=== PATIENT | male | born 1960 | race African-American/Black ===

== ENCOUNTER 2017-07-24 17:02 | Observation (INO) | payer OTHER ==
[2017-07-24] MEDS ORDERED: ONDANSETRON 4 MG/2 ML VIAL IVP STA (18:25)
[2017-07-24] MEDS ORDERED: SODIUM CHLORIDE 0.9% 1,000 ML IV STA ×2 (18:25)
[2017-07-24] MEDS ORDERED: PANTOPRAZOLE 40 MG/10 ML VIAL IVP STA (18:25)
--- NOTE | 2017-07-24 18:40 | ED ---
GI Bleed HPI - General Chief complaint: GI Bleed Stated complaint: BLACK STOOL Time Seen by Provider: 07/24/17 18:04 Source: patient, family, RN notes reviewed, old records reviewed Mode of arrival: wheelchair Limitations: no limitations - History of Present Illness Initial comments: 56-year-old with history of alcoholism presents to the emergency department after 7 days of being sober chief complaint of bloody stools. [facility] due to coffee-ground emesis. His vitals and hemoglobin was stable at that time. He is discharged. He's been having frequent bloody stools since that time. Patient did show me a picture of his stool and emesis and it does appear to be black and coffee ground like. He states he feels weak and fatigued. He is a smoker. Does complain of some shortness of breath with exertion. Denies any fever or chills. Reports a cramping abdominal pain. - Related Data Home Medications Medication Instructions Recorded Confirmed Bismuth Subsalicylate 524 mg PO Q4H PRN 07/24/17 07/24/17 [Pepto-Bismol] D-Methorphan/PE/Acetaminophen 2 cap PO Q6H PRN 07/24/17 07/24/17 [Vicks Dayquil Liquicaps] Gabapentin [Neurontin] 300 mg PO BID 07/24/17 07/24/17 Sertraline [Zoloft] 150 mg PO DAILY 07/24/17 07/24/17 Allergies Allergy/AdvReac Type Severity Reaction Status Date / Time No Known Allergies Allergy Verified 07/24/17 18:27 Review of Systems ROS Statement: Those systems with pertinent positive or pertinent negative responses have been documented in the HPI. ROS Other: All systems not noted in ROS Statement are negative. Past Medical History Past Medical History: No Reported History Additional Past Medical History / Comment(s): chronic neck pain History of Any Multi-Drug Resistant Organisms: None Reported Past Surgical History: Orthopedic Surgery Past Psychological History: Depression Smoking Status: Never smoker Past Alcohol Use History: None Reported Past Drug Use History: None Reported General Exam - General Exam Comments Initial Comments: 56-year-old male. Alert and oriented. No significant distress. Limitations: no limitations General appearance: alert, in no apparent distress Head exam: Present: atraumatic, normocephalic, normal inspection Eye exam: Present: normal appearance, PERRL, EOMI. Absent: scleral icterus, conjunctival injection, periorbital swelling ENT exam: Present: normal exam, mucous membranes moist Neck exam: Present: normal inspection. Absent: tenderness, meningismus, lymphadenopathy Respiratory exam: Present: wheezes. Absent: normal lung sounds bilaterally, respiratory distress, rales, rhonchi, stridor Cardiovascular Exam: Present: regular rate, normal rhythm, normal heart sounds. Absent: systolic murmur, diastolic murmur, rubs, gallop, clicks GI/Abdominal exam: Present: soft, tenderness, normal bowel sounds. Absent: distended, guarding, rebound, rigid Rectal exam: Present: normal rectal tone, heme (+) stool, black stool. Absent: normal inspection Extremities exam: Present: normal inspection, full ROM, normal capillary refill. Absent: tenderness, pedal edema, joint swelling, calf tenderness Back exam: Present: normal inspection Neurological exam: Present: alert, oriented X3, CN II-XII intact Psychiatric exam: Present: normal affect, normal mood Skin exam: Present: warm, dry, intact, normal color. Absent: rash Course Vital Signs 07/24/17 07/24/17 07/24/17 17:26 19:32 19:39 Temperature 97.9 F Pulse Rate 105 H 80 81 Respiratory 18 Rate Blood Pressure 112/68 O2 Sat by Pulse 96 Oximetry 07/24/17 07/24/17 19:46 20:44 Temperature 97.9 F Pulse Rate 83 82 Respiratory 18 16 Rate Blood Pressure 120/75 125/87 O2 Sat by Pulse 96 100 Oximetry - Reevaluation(s) Reevaluation #1: 07/24/17 19:23 Reviewing patient's lab work and testing from [facility]. His hemoglobin of 17.8 on 521. His fecal occult at that time was negative. Blood type A positive. He had a computed tomography scan of his chest. There is no evidence of PE. There is aneurysmal dilation of the ascending thoracic aorta with 3.6 cm. Expanded lung gonzalez. Accentuation of the interstitial markings of both lung gonzalez with findings of a reticular nodular pattern suggesting possible interstitial edema or decompensation. No pneumothorax. No axillary or mediastinal adenopathy. Reevaluation #2: 07/24/17 20:42 is reevaluated discussed and wheezing. Pulse ox 90% on room air. Placed on oxygen. Patient informed of lab results. Concern for COPD exacerbation with normal chest x-ray and his symptoms and coughing. We'll start the Patient on Solu-Medrol. Also treating the Patient for GI bleed. His hemoglobin is stable however he did have melanotic stool. Medical Decision Making - Medical Decision Making 56-year-old male presents emergency room today chief complaint of bloody stools. He shows me a picture with melanotic stools. Evidence of melena during rectal exam, planes of cramping abdominal pain. Patient also is having some wheezing and shortness of breath. DuoNeb treatment completed. Has a nonproductive cough. Chest x-ray was reviewed and normal. Other lab work was reviewed and unremarkable. His hemoglobin was stable from his previous ER stay and [facility]. However with the significant amount of melanotic stool concerned and would like to recheck the labs in the morning. Also treat the Patient for COPD exacerbation with steroids and continue breathing treatments. Consults to GI and pulmonology. With his history of alcoholic gastritis we'll put the Patient on CIWA protocol as well. Discussed the case with Julio Brannon NP. She will admit for [facility]. - Lab Data Result diagrams: 07/24/17 18:58 07/24/17 18:58 Lab Results 07/24/17 07/24/17 07/24/17 Range/Units 18:58 18:58 18:58 WBC 10.4 (3.8-10.6) k/uL RBC 4.50 (4.30-5.90) m/uL Hgb 15.1 (13.0-17.5) gm/dL Hct 41.9 (39.0-53.0) % MCV 93.3 (80.0-100.0) fL MCH 33.6 (25.0-35.0) pg MCHC 36.0 (31.0-37.0) g/dL RDW 12.1 (11.5-15.5) % Plt Count 441 (150-450) k/uL Neutrophils % 70 % Lymphocytes % 16 % Monocytes % 10 % Eosinophils % 2 % Basophils % 0 % Neutrophils # 7.3 (1.3-7.7) k/uL Lymphocytes # 1.6 (1.0-4.8) k/uL Monocytes # 1.0 (0-1.0) k/uL Eosinophils # 0.2 (0-0.7) k/uL Basophils # 0.0 (0-0.2) k/uL PT (9.0-12.0) sec INR (<1.2) APTT (22.0-30.0) sec Sodium 136 L (137-145) mmol/L Potassium 3.7 (3.5-5.1) mmol/L Chloride 91 L (98-107) mmol/L Carbon Dioxide 32 H (22-30) mmol/L Anion Gap 13 mmol/L BUN 14 (9-20) mg/dL Creatinine 0.70 (0.66-1.25) mg/dL Est GFR (CKD-EPI)AfAm >90 (>60 ml/min/1.73 sqM) Est GFR (CKD-EPI)NonAf >90 (>60 ml/min/1.73 sqM) Glucose 86 (74-99) mg/dL Calcium 9.7 (8.4-10.2) mg/dL Magnesium 1.8 (1.6-2.3) mg/dL Total Bilirubin 0.3 (0.2-1.3) mg/dL AST 49 (17-59) U/L ALT 38 (21-72) U/L Alkaline Phosphatase 65 (38-126) U/L Total Creatine Kinase 205 H (55-170) U/L CK-MB (CK-2) 1.0 (0.0-2.4) ng/mL CK-MB (CK-2) Rel Index 0.5 Troponin I <0.012 (0.000-0.034) ng/mL Total Protein 6.6 (6.3-8.2) g/dL Albumin 3.7 (3.5-5.0) g/dL Lipase 143 (23-300) U/L Stool Occult Blood (Negative) Blood Type Blood Type Recheck Antibody Screen Spec Expiration Date 07/24/17 07/24/17 07/24/17 Range/Units 18:58 18:58 18:58 WBC (3.8-10.6) k/uL RBC (4.30-5.90) m/uL Hgb (13.0-17.5) gm/dL Hct (39.0-53.0) % MCV (80.0-100.0) fL MCH (25.0-35.0) pg MCHC (31.0-37.0) g/dL RDW (11.5-15.5) % Plt Count (150-450) k/uL Neutrophils % % Lymphocytes % % Monocytes % % Eosinophils % % Basophils % % Neutrophils # (1.3-7.7) k/uL Lymphocytes # (1.0-4.8) k/uL Monocytes # (0-1.0) k/uL Eosinophils # (0-0.7) k/uL Basophils # (0-0.2) k/uL PT 11.0 (9.0-12.0) sec INR 1.1 (<1.2) APTT 24.5 (22.0-30.0) sec Sodium (137-145) mmol/L Potassium (3.5-5.1) mmol/L Chloride (98-107) mmol/L Carbon Dioxide (22-30) mmol/L Anion Gap mmol/L BUN (9-20) mg/dL Creatinine (0.66-1.25) mg/dL Est GFR (CKD-EPI)AfAm (>60 ml/min/1.73 sqM) Est GFR (CKD-EPI)NonAf (>60 ml/min/1.73 sqM) Glucose (74-99) mg/dL Calcium (8.4-10.2) mg/dL Magnesium (1.6-2.3) mg/dL Total Bilirubin (0.2-1.3) mg/dL AST (17-59) U/L ALT (21-72) U/L Alkaline Phosphatase (38-126) U/L Total Creatine Kinase (55-170) U/L CK-MB (CK-2) (0.0-2.4) ng/mL CK-MB (CK-2) Rel Index Troponin I (0.000-0.034) ng/mL Total Protein (6.3-8.2) g/dL Albumin (3.5-5.0) g/dL Lipase (23-300) U/L Stool Occult Blood Positive (Negative) Blood Type A Positive Blood Type Recheck CABO Indicated Antibody Screen NEGATIVE Spec Expiration Date 07/27/20172017 - Radiology Data Radiology results: report reviewed EKG performed at 1942 shows normal sinus rhythm, incomplete right branch block. Portable an EKG. Ventricular rate of 76 bpm. Pulse 134. QRS ration 12/08/2001. QTc is 414/465. Disposition Clinical Impression: Melena, Alcoholic gastritis, COPD exacerbation Disposition: ADMITTED IP TO THIS HOSP Condition: Stable Is patient prescribed a controlled substance at d/c from ED?: No When asked, does pt state using other controlled substances?: No If prescribed controlled substance>3 days was MAPS reviewed?: No If opioid is for acute pain is fill amount 7 days or less?: No If Rx opioid, was Start Talking consent form obtained?: No Referrals: None,Stated [Primary Care Provider] - 1-2 days Time of Disposition: 20:49
[2017-07-24] MEDS ORDERED: IPRATROPIUM-ALBUTEROL 3 ML NEB INHALATION STA (18:56)
[2017-07-24 19:17] LABS: Basophils % (A) 0 %; Eosinophils # (A) 0.2 k/uL (0-0.7); Eosinophils % (A) 2 %; HCT 41.9 % (39.0-53.0); HGB 15.1 gm/dL (13.0-17.5); Lymphocytes # (A) 1.6 k/uL (1.0-4.8); Lymphocytes % (A) 16 %; MCH 33.6 pg (25.0-35.0); MCV 93.3 fL (80.0-100.0); Mean Platelet Volume 6.9; Monocytes % (A) 10 %; Neutrophils # (A) 7.3 k/uL (1.3-7.7); Neutrophils % (A) 70 %; Platelet Count 441 k/uL (150-450); RDW 12.1 % (11.5-15.5); WBC 10.4 k/uL (3.8-10.6)
--- NOTE | 2017-07-24 19:38 | XR ---
EXAMINATION TYPE: XR chest 2V DATE OF EXAM: 07/24/2017 COMPARISON: NONE HISTORY: Short of breath TECHNIQUE: Frontal and lateral views of the chest are obtained. FINDINGS: Heart and mediastinum are normal. Lungs are clear. Diaphragm is normal. Bony thorax is int act. There are chest leads. IMPRESSION: Normal chest
--- NOTE | 2017-07-24 19:39 | XR ---
EXAMINATION TYPE: XR KUB DATE OF EXAM: 07/24/2017 COMPARISON: NONE HISTORY: Abdominal pain and weakness TECHNIQUE: 2 views FINDINGS: 2 upright views were obtained and show normal bowel gas pattern. There is no sign of intest inal obstruction or pneumoperitoneum. Fecal pattern is normal. Lung bases are clear. There are no pat hologic calcifications. IMPRESSION: Nonacute abdomen.
[2017-07-24 19:41] LABS: INR 1.1 (<1.2); Partial Thromboplastin Time 24.5 sec (22.0-30.0)
[2017-07-24 19:49] LABS: Creatine Kinase 205 U/L (55-170)
[2017-07-24 19:53] LABS: ALT 38 U/L (21-72); AST 49 U/L (17-59); Albumin 3.7 g/dL (3.5-5.0); Alkaline Phosphatase 65 U/L (38-126); Anion Gap 13 mmol/L; Blood Urea Nitrogen 14 mg/dL (9-20); Calcium 9.7 mg/dL (8.4-10.2); Carbon Dioxide 32 mmol/L (22-30); Chloride 91 mmol/L (98-107); Glucose 86 mg/dL (74-99); Lipase 143 U/L (23-300); Magnesium 1.8 mg/dL (1.6-2.3); Potassium 3.7 mmol/L (3.5-5.1); Sodium 136 mmol/L (137-145); Total Bilirubin 0.3 mg/dL (0.2-1.3); Total Protein 6.6 g/dL (6.3-8.2)
[2017-07-24 20:01] LABS: Troponin I <0.012 ng/mL (0.000-0.034)
[2017-07-24] MEDS ORDERED: methylPREDNISolone SOD SUCCI 125 MG/2 ML VIAL IV STA (20:28)
[2017-07-24] MEDS ORDERED: IPRATROPIUM-ALBUTEROL 3 ML NEB INHALATION PRN (20:29)
[2017-07-24] MEDS ORDERED: MORPHINE SULFATE 4 MG/ML SYRINGE IVP STA (20:37)
[2017-07-24] MEDS ORDERED: LORazepam 2 MG/ML INJ IV PRN ×3 (20:46)
[2017-07-24] MEDS ORDERED: THIAMINE 100 MG/ML 2 ML VIAL IM STA (20:46)
[2017-07-24] MEDS: guaiFENesin 600 MG TABLET.ER PO SCH (22:37)
[2017-07-24] MEDS: GABAPENTIN 300 MG CAP PO SCH (22:37)
[2017-07-24] MEDS: methylPREDNISolone SOD SUCCI 125 MG/2 ML VIAL IV SCH (23:45)
[2017-07-25 06:03] VITALS: RESP 16
[2017-07-25] MEDS: methylPREDNISolone SOD SUCCI 125 MG/2 ML VIAL IV SCH ×4 (06:37→23:37)
[2017-07-25] MEDS: SERTRALINE 50 MG TAB PO SCH (10:07)
[2017-07-25] MEDS: GABAPENTIN 300 MG CAP PO SCH ×2 (10:08→21:27)
[2017-07-25] MEDS: guaiFENesin 600 MG TABLET.ER PO SCH ×2 (10:08→21:27)
--- NOTE | 2017-07-25 11:17 | P.CNPUL ---
History of Present Illness Consult date: 07/25/17 Requesting physician: Floresita Hunt Reason for consult: dyspnea Chief complaint: Shortness of breath, nausea and vomiting. History of present illness: This is a very pleasant 56-year-old gentleman who has no primary care physician. He does follow with the [place] [facility] for history of depression he is currently on Zoloft and gabapentin. He does have a history of alcohol abuse. He does have a 35+ year pack per day smoking history. He has not been seen by a enamel burner in the past he has had exertional dyspnea for quite some time now. No oxygen or inhalers in the outpatient setting. He presented here to the emergency room yesterday after a week of continuous nausea and vomiting. He was seen in the emergency room 2 times at [facility] and both times discharged home. The first time with no treatment plan and the second time he was given antibiotics. After that he was noticing some black tarry stool and presented here to the emergency room yesterday for the same. He denied any hematocrit emesis. No bright red blood in the stool. He does have abdominal pain and cramping. He was also having increasing shortness of breath. We are consulted for the same. He is seen today in the regular medical floor. He is currently awake and alert in no acute distress. He denies any further rectal bleeding. His stool for occult blood was positive. Hemoglobin 15.1. He's been afebrile. Hemodynamically stable. Maintaining good O2 saturations in the 90s on 2 L/m per nasal cannula. He has been initiated on bronchodilators and IV Solu-Medrol. A computed tomography scan at [facility] revealed no evidence of PE. There is aneurysmal dilatation of the ascending thoracic aorta measuring 3.6 cm. Expanded lung gonzalez. Accentuation of the interstitial markings in both lung gonzalez with findings of reticular nodular pattern suggestion possible interstitial edema and decompensation. No pneumothorax. No axillary mediastinal adenopathy. Review of Systems Constitutional: Reports malaise, Reports poor appetite Eyes: denies blurred vision, denies decreased vision Ears: deny: decreased hearing Ears, nose, mouth and throat: Denies headache, Denies sore throat Cardiovascular: Denies chest pain, Denies shortness of breath Respiratory: Reports congestion, Reports cough, Reports dyspnea, Reports wheezing Gastrointestinal: Reports abdominal pain, Reports change in bowel habits, Reports melena Genitourinary: Reports as per HPI Musculoskeletal: Denies myalgias Integumentary: Denies pruritus, Denies rash Neurological: Denies numbness, Denies weakness Psychiatric: Denies anxiety, Denies depression Endocrine: Denies fatigue, Denies weight change Hematologic/Lymphatic: Reports as per HPI Allergic/Immunologic: Reports as per HPI Past Medical History Past Medical History: No Reported History Additional Past Medical History / Comment(s): chronic neck pain History of Any Multi-Drug Resistant Organisms: None Reported Past Surgical History: Orthopedic Surgery Past Anesthesia/Blood Transfusion Reactions: No Reported Reaction Past Psychological History: Depression Smoking Status: Never smoker Past Alcohol Use History: None Reported Past Drug Use History: None Reported - Past Family History Mother Family Medical History: Cancer Medications and Allergies Home Medications Medication Instructions Recorded Confirmed Type Bismuth Subsalicylate 524 mg PO Q4H PRN 07/24/17 07/24/17 History [Pepto-Bismol] D-Methorphan/PE/Acetaminophen 2 cap PO Q6H PRN 07/24/17 07/24/17 History [Vicks Dayquil Liquicaps] Gabapentin [Neurontin] 300 mg PO BID 07/24/17 07/24/17 History Sertraline [Zoloft] 150 mg PO DAILY 07/24/17 07/24/17 History Allergies Allergy/AdvReac Type Severity Reaction Status Date / Time No Known Allergies Allergy Verified 07/24/17 18:27 Physical Exam Vitals: Vital Signs Temp Pulse Pulse Resp BP BP Pulse Ox 07/25/17 06:02 97.1 F L 71 16 108/66 93 L 07/24/17 23:00 97.5 F L 76 14 108/68 99 07/24/17 20:44 97.9 F 82 16 125/87 100 07/24/17 19:46 83 18 120/75 96 07/24/17 19:39 81 07/24/17 19:32 80 07/24/17 17:26 97.9 F 105 H 18 112/68 96 Intake and Output 07/24/17 07/25/17 07/25/17 22:59 06:59 14:59 Output Total 450 Balance -450 Output: Urine 450 Other: # Voids 0 Weight 68.039 kg - Constitutional General appearance: thin - EENT Eyes: EOMI, PERRLA Ears: bilateral: normal - Neck Neck: normal ROM Carotids: bilateral: upstroke normal Thyroid: bilateral: normal size - Respiratory Respiratory: bilateral: CTA - Cardiovascular Rhythm: regular Heart sounds: normal: S1, S2 - Gastrointestinal General gastrointestinal: normal bowel sounds Localized gastrointestinal: tender: diffuse - Integumentary Integumentary: normal turgor - Neurologic Neurologic: CNII-XII intact - Musculoskeletal Musculoskeletal: generalized weakness - Psychiatric Psychiatric: A&O x's 3, appropriate affect, intact judgment & insight Results - Laboratory Findings CBC and BMP: 07/24/17 18:58 07/24/17 18:58 PT/INR, D-dimer PT 11.0 sec (9.0-12.0) 07/24/17 18:58 INR 1.1 (<1.2) 07/24/17 18:58 Abnormal lab findings: Abnormal Labs 07/24/17 07/24/17 18:58 18:58 Sodium 136 L Chloride 91 L Carbon Dioxide 32 H Total Creatine Kinase 205 H - Diagnostic Findings Chest x-ray: image reviewed Assessment and Plan Assessment: Impression: #1 Acute GI bleed of unknown source. #2 History of daily alcohol use. #3 Acute hypoxic respiratory failure secondary to suspected significant chronic obstructive pulmonary disease exacerbation #4 History of heavy tobacco dependence of greater than 40 years at 12 1-1/2 packs per day. #5 History of depression. Plan: The patient was seen and evaluated by Dr. Phillips. The patient has been initiated on IV Solu-Medrol and bronchodilators. We will make them every 4 hours and when necessary. Add Symbicort twice a day. He most likely does have extensive COPD which will be worked up in the outpatient setting. Will need to be worked up by gastroenterology regarding his GI bleed. Suspect upper GI bleed secondary to alcohol use. We will continue to follow and make further recommendations based on his clinical status. I, the cosigning physician, performed a history & physical examination of the patient. Lungs sounds bilateral end expiratory wheeze. Diminished. Maintaining good O2 saturations in the 90s on 2 L/m per nasal cannula. I discussed the assessment and plan of care with my nurse practitioner, Radha Lee. I attest to the above consultation as dictated by her. Time with Patient: Greater than 30
[2017-07-25] MEDS: THIAMINE 100 MG TAB PO SCH ×2 (13:29→17:45)
--- NOTE | 2017-07-25 18:31 | P.CONS ---
History of Present Illness - Reason for Consult Consult date: 07/25/17 GI bleeding - History of Present Illness The patient is a 56-year-old male who presented to the emergency room with the complaint of dark and bloody stools. He has also been complaining of cough and shortness of breath. The patient has history of alcohol dependency and drinks excessively on a regular basis but apparently has stopped drinking around a month ago. He was in the emergency room at [facility] earlier this week for dark and bloody stools and his hemoglobin was 17.8 and was discharged. At that time he reported. Coffee-ground emesis as well. The patient does tolerating regular diet in the hospital. His hemoglobin has been around 15. He denied dysphagia, odynophagia. Reported abdominal cramps that seems to be improving. No fever, chills or jaundice. Review of Systems Constitutional: Denies fever, chills, sweats, weight gain, or loss. Increased fatigue weakness. HEENT: No headaches, blurred vision or loss, earaches, drainage, tinnitus, oral mucosal lesions, dysphagia, or odynophagia. CARDIAC: Negative for chest pain, arrhythmias, or palpitation. RESPIRATORY: Reports shortness of breath and cough, no hemoptysis, or significant sputum production. GI: See HPI for pertinent findings. : Negative for hematuria, urgency, frequency, polyuria, or dysuria. MUSCULOSKELETAL: Negative for muscle aches, swelling, arthritis, and arthralgias. NEUROLOGIC: Negative for stroke or TIA. ENDOCRINE: Negative for thyroid problems. SKIN: Negative for rash or itching. PSYCHIATRIC: Negative history for depression and anxiety Past Medical History Past Medical History: No Reported History Additional Past Medical History / Comment(s): chronic neck pain History of Any Multi-Drug Resistant Organisms: None Reported Past Surgical History: Orthopedic Surgery Past Anesthesia/Blood Transfusion Reactions: No Reported Reaction Past Psychological History: Depression Smoking Status: Never smoker Past Alcohol Use History: None Reported Past Drug Use History: None Reported - Past Family History Mother Family Medical History: Cancer Medications and Allergies Home Medications Medication Instructions Recorded Confirmed Type Bismuth Subsalicylate 524 mg PO Q4H PRN 07/24/17 07/24/17 History [Pepto-Bismol] D-Methorphan/PE/Acetaminophen 2 cap PO Q6H PRN 07/24/17 07/24/17 History [Vicks Dayquil Liquicaps] Gabapentin [Neurontin] 300 mg PO BID 07/24/17 07/24/17 History Sertraline [Zoloft] 150 mg PO DAILY 07/24/17 07/24/17 History Allergies Allergy/AdvReac Type Severity Reaction Status Date / Time No Known Allergies Allergy Verified 07/24/17 18:27 Physical Exam Vitals: Vital Signs Temp Pulse Pulse Resp BP BP Pulse Ox 07/25/17 06:02 97.1 F L 71 16 108/66 93 L 07/24/17 23:00 97.5 F L 76 14 108/68 99 07/24/17 20:44 97.9 F 82 16 125/87 100 07/24/17 19:46 83 18 120/75 96 07/24/17 19:39 81 07/24/17 19:32 80 07/24/17 17:26 97.9 F 105 H 18 112/68 96 Intake and Output 07/25/17 07/25/17 07/25/17 06:59 14:59 22:59 Intake Total 0 Output Total 450 Balance -450 0 Intake: Intake, IV Titration 0 Amount Sodium Chloride 0.9% 1, 0 000 ml @ 100 mls/hr IV . Q10H STA Rx#:[id number] Output: Urine 450 General appearance: The patient is alert, oriented, in no acute distress. HET: Head is normocephalic and atraumatic. Pupils are equal and reactive. Oropharynx is clear without lesions. Neck: Supple without lymphadenopathy. Trachea midline. Heart: S1 S2. Regular rate and rhythm. Lungs: No crackles or wheezes are heard. Abdomen: Soft, nontender, nondistended with bowel sounds. No peritoneal signs. No palpable organomegaly or masses. Extremities: Normal skin color and turgor. No cyanosis, rash, ulceration, clubbing, or edema. Radial and pedal pulses are 2/4 bilaterally. Neurological: No focal deficits. Strength and sensation are grossly intact. Results CBC & Chem 7: 07/24/17 18:58 07/24/17 18:58 Labs: Abnormal Lab Results - Last 24 Hours (Table) 07/24/17 07/24/17 Range/Units 18:58 18:58 Sodium 136 L (137-145) mmol/L Chloride 91 L (98-107) mmol/L Carbon Dioxide 32 H (22-30) mmol/L Total Creatine Kinase 205 H (55-170) U/L Assessment and Plan Assessment: GI bleeding could be on the basis of alcoholic gastritis. The mucosal tears secondary to intractable nausea and vomiting, which he apparently experienced early in this illness, should be kept in mind. The patient is being managed currently for exacerbation of COPD. Plan: Agree with your current management. We will add H2 kimberly treatment empirically and further plans including consideration for upper endoscopy will be made based on his course. His last colonoscopy was 6 or 7 years ago. I will follow with you with interest.
--- NOTE | 2017-07-25 21:55 | HP ---
HISTORY AND PHYSICAL DATE OF SERVICE: 07/25/2017 CHIEF COMPLAINTS: GI bleed and black stools and shortness of breath. HISTORY OF PRESENT ILLNESS: This 56-year-old gentleman with a past medical history of multiple medical problems, including history of DJD, history of depression not being followed by the [facility] in the outpatient setting., presented with multiple complaints, including GI bleed, black stools and shortness of breath to [facility]. The patient has significant history of EtOH. Patient is apparently sober for the last 7 days. Last drink was last Thursday. The patient was evaluated at [facility] and was discharged. The patient was started on bronchodilators and steroids. The patient made significant improvement. The patient is being closely monitored at this time. The hemoglobin is found to be 15.1. Sodium is 136. There is no history of any fever, rigors, chills at this time. PAST MEDICAL HISTORY: History of DJD, history of chronic neck pain. MEDICATIONS: 1. Pepto-Bismol 525 mg q.4h p.r.n. 2. Dextromethorphan 2 capsules every 6 hours p.r.n. 3. Zoloft 150 mg p.o. daily. 4. Neurontin 300 mg p.o. b.i.d. ALLERGIES: None. FAMILY HISTORY: History of cancers in the family. SOCIAL HISTORY: History of alcohol. No history of smoking. REVIEW OF SYSTEMS: ENT: No diminished hearing, diminished vision. CARDIOVASCULAR: As mentioned earlier. RESPIRATORY: As mentioned earlier. GI: As mentioned earlier. : No dysuria. NERVOUS: No numbness or weakness. ALLERGY/IMMUNOLOGY: No asthma or hay fever. MUSCULOSKELETAL: As mentioned earlier. HEMATOLOGY/ONCOLOGY: As mentioned earlier. ENDOCRINE: No history of diabetes, hypothyroidism. CONSTITUTIONAL: As mentioned earlier. DERMATOLOGY: Negative. RHEUMATOLOGY: Negative. PSYCHIATRY: As mentioned earlier. PHYSICAL EXAM: The patient alert, oriented x3. Pulse 62, blood pressure 113/70, respirations 16, temperature 98.2, pulse ox 96% on room air. HEENT: Conjunctivae normal. Oral mucosa moist. NECK: No jugular venous distention. No carotid bruits. No lymph node enlargement. CARDIOVASCULAR: S1, S2 muffled. RESPIRATORY: Breath sounds diminished in the bases. Bilateral scattered rhonchi and crackles. ABDOMEN: Soft, nontender. No mass palpable. LEGS: No edema. No swelling. NERVOUS SYSTEM: Diffusely weak. Cranial nerve grossly intact. LYMPHATIC: No lymphadenopathy in neck, axillae or groin. SKIN: No ulcer, rash or bleeding. ASSESSMENT: 1. Chronic obstructive pulmonary disease acute exacerbation with acute purulent tracheobronchitis. 2. Possible gastrointestinal bleed. 3. History of EtOH. 4. History of degenerative joint disease, chronic neck pain. 5. History of depression. 6. Hyponatremia. 7. Aneurysmal dilatation of the ascending aorta from elsewhere CT scan. RECOMMENDATIONS AND DISCUSSION: In this 56-year-old gentleman who presented with multiple complex medical issues, will monitor the patient closely, continue the current medical management and symmetric pneumothorax. Will initiate intensive bronchodilator treatment. Otherwise, I would also recommend proton pump inhibitors and consult with VENKATA Payan protocol. Otherwise, avoid NSAIDs at this time. Repeat labs will be ordered. Discussed with Gastroenterology. Recommend possibly outpatient workup at this time, as the patient is stable. Otherwise, I also did discuss with multiple family members and we will also [facility] Also, according to the daughter, the patient might have [facility] insurance. Prognosis guarded. Further recommendations to follow. MMODL / IJN: [id number] /
[2017-07-26 06:04] VITALS: BP 113/73; PULSE 78; TEMP 97
[2017-07-26] MEDS: methylPREDNISolone SOD SUCCI 125 MG/2 ML VIAL IV SCH ×2 (06:33→11:07)
[2017-07-26] MEDS: SERTRALINE 50 MG TAB PO SCH (07:42)
[2017-07-26] MEDS: GABAPENTIN 300 MG CAP PO SCH (07:42)
[2017-07-26] MEDS: guaiFENesin 600 MG TABLET.ER PO SCH (07:42)
[2017-07-26 08:11] LABS: Basophils % (A) 0 %; Eosinophils % (A) 0 %; HCT 35.7 % (39.0-53.0); HGB 12.2 gm/dL (13.0-17.5); Lymphocytes # (A) 0.8 k/uL (1.0-4.8); Lymphocytes % (A) 8 %; MCH 33.3 pg (25.0-35.0); MCHC 34.1 g/dL (31.0-37.0); MCV 97.8 fL (80.0-100.0); Mean Platelet Volume 6.8; Monocytes # (A) 0.5 k/uL (0-1.0); Monocytes % (A) 5 %; Neutrophils # (A) 8.7 k/uL (1.3-7.7); Neutrophils % (A) 84 %; Platelet Count 403 k/uL (150-450); RBC 3.65 m/uL (4.30-5.90); RDW 12.8 % (11.5-15.5); WBC 10.4 k/uL (3.8-10.6)
[2017-07-26 08:32] LABS: Anion Gap 12 mmol/L; Blood Urea Nitrogen 12 mg/dL (9-20); Calcium 9.3 mg/dL (8.4-10.2); Carbon Dioxide 26 mmol/L (22-30); Chloride 104 mmol/L (98-107); Glucose 101 mg/dL (74-99); Potassium 4.2 mmol/L (3.5-5.1); Sodium 142 mmol/L (137-145)
--- NOTE | 2017-07-26 09:36 | P.PN ---
Subjective Progress Note Date: 07/26/17 Principal diagnosis: Shortness of breath Progress note dated 07/26/2017 56-year-old white male who has no primary care physician. He apparently follows with the [facility] in [place]. The patient apparently takes Zoloft and gabapentin. Does have a history of alcohol abuse and significant tobacco abuse. Came in with complaints of primarily GI issues. We will assess see him because of the COPD. He likely does have COPD. We will place him on appropriate medications and I'm happy to report that he does feel much better. He was recently at [facility] twice for difficulty breathing and also GI issues. He was never admitted there. Again feeling much better today. We did cruise counselor him about the importance of smoking cessation. Objective - Vital Signs Vital signs: Vital Signs Temp 97.0 F L 07/26/17 06:03 Pulse 78 07/26/17 06:03 Resp 16 07/26/17 06:03 BP 113/73 07/26/17 06:03 Pulse Ox 99 07/26/17 06:03 Intake & Output 07/25/17 07/26/17 07/26/17 18:59 06:59 18:59 Intake Total 0 Balance 0 Intake: Intake, IV Titration 0 Amount Sodium Chloride 0.9% 1, 0 000 ml @ 100 mls/hr IV . Q10H STA Rx#:[id number] Other: # Voids 1 - Exam No acute distress, oriented 3. HEENT examination is grossly unremarkable. Mucous membranes are moist. No oral lesions. Neck supple. Full range of motion. No adenopathy thyromegaly or neck vein distention. Cardiovascular examination reveals regular rhythm rate. S1-S2 normal. No S3 or S4. No discernible murmur noted. Lungs reveal few scattered rhonchi. Breath sounds equal bilaterally. Mild expiratory wheezes. Breath sounds equal bilaterally. Slight prolongation. Breath sounds better today than yesterday. Abdomen soft bowel sounds are heard. No masses or tenderness. Extremities are intact. No cyanosis clubbing or edema. Skin is without rash or lesion. Neurologic examination is brief but nonfocal. - Labs CBC & Chem 7: 07/26/17 07:11 07/26/17 07:11 Labs: Abnormal Lab Results - Last 24 Hours (Table) 07/26/17 07/26/17 Range/Units 07:11 07:11 RBC 3.65 L (4.30-5.90) m/uL Hgb 12.2 L (13.0-17.5) gm/dL Hct 35.7 L (39.0-53.0) % Neutrophils # 8.7 H (1.3-7.7) k/uL Lymphocytes # 0.8 L (1.0-4.8) k/uL Creatinine 0.58 L (0.66-1.25) mg/dL Glucose 101 H (74-99) mg/dL Assessment and Plan Assessment: Assessment Acute GI bleed History of daily alcohol use, rule out alcoholic gastritis Acute hypoxemic respiratory failure secondary to suspected COPD History of heavy tobacco use History of depression Plan: Plan dated 07/26/2017. The patient was started on IV Solu-Medrol and bronchodilators. The patient is doing much better. We'll continue to follow. We have counseled him about the importance of smoking cessation. Gastroenterology to see the patient for his GI issues. He'll need follow-up in our office post discharge. Time with Patient: Less than 30
[2017-07-26] MEDS: THIAMINE 100 MG TAB PO SCH (11:07)
[2017-07-26] MEDS ORDERED: SYMBICORT 160-4.5 MCG INHALER INHALATION SCH (20:00)
--- NOTE | 2017-07-27 05:56 | DS ---
DISCHARGE SUMMARY DATE OF SERVICE: 07/26/2017 FINAL DIAGNOSES: 1. Chronic obstructive pulmonary disease acute exacerbation with acute purulent tracheobronchitis. 2. Possible gastrointestinal bleed. 3. History of EtOH. 4. History of degenerative joint disease. 5. History of Chronic back pain. 6. History of depression. 7. Hyponatremia. 8. Dilatation of the ascending aorta from CT scan elsewhere. DISCHARGE DISPOSITION: The patient is being discharged in stable condition with guarded prognosis. HISTORY OF PRESENT ILLNESS: This 56-year-old gentleman with a past medical history of multiple medical problems as mentioned earlier, was admitted with COPD exacerbation, suspicion of GI bleed. The patient was treated with bronchodilators, improved significantly. Patient is currently stable and improved significantly. Hemoglobin 7.2. Dr. Phillips saw the patient. Recommend the patient to be discharged. DISCHARGE ADVICE AND MEDICATIONS: 1. Diet is cardiac diet. 2. Activity limited until followup. 3. Follow up with the [facility], Dr. Page in 2-3 days. 4. CBC, BMP. 5. Follow up with Dr. Phillips as advised. MEDICATIONS: 1. subsalicylate p.r.n. 2. Symbicort 1 puff b.i.d. 3. Neurontin 300 mg p.o. b.i.d. 4. Albuterol and Atrovent updrafts q.i.d. and p.r.n. 5. Zoloft 100 mg 150 daily. 6. Vitamin B1 100 mg p.o. daily. 7. Levaquin 500 mg daily. 8. Steroid taper prednisone. MMODL / IJN: [id number] / CAROL
== END 2017-07-26 16:43 | disposition home or self-care (01) ==
LOC: EC 17:02 → 4MS4W 21:01
PROVIDERS: ADMIT Hospitalist; ATTEND Hospitalist
DX: J44.1 Chronic obstructive pulmonary disease with (acute) exacerbation (principal); J44.0 Chronic obstructive pulmonary disease with (acute) lower respiratory infection; J20.9 Acute bronchitis, unspecified; J96.01 Acute respiratory failure with hypoxia; K92.1 Melena; M19.90 Unspecified osteoarthritis, unspecified site; F10.20 Alcohol dependence, uncomplicated; E87.1 Hypo-osmolality and hyponatremia; F17.210 Nicotine dependence, cigarettes, uncomplicated; G89.29 Other chronic pain; M54.2 Cervicalgia; M54.9 Dorsalgia, unspecified; F32.9 Major depressive disorder, single episode, unspecified; I71.2 Thoracic aortic aneurysm, without rupture; Z79.899 Other long term (current) drug therapy; Z87.19 Personal history of other diseases of the digestive system; Z80.9 Family history of malignant neoplasm, unspecified
CPT/HCPCS: 36415; 71046; 74018; 80048; 80053; 82272; 82550; 82553; 83690; 83735; 84484; 85025; 85610; 85730; 86850; 86900; 86901; 93005; 94640; 94760; 96361; 96372; 96374; 96375; 96376; 99285

== ENCOUNTER 2018-03-04 06:15 | Emergency (ER) | payer OTHER ==
[2018-03-04 06:21] VITALS: BP 132/85; PULSE 107; RESP 20; TEMP 98.3
--- NOTE | 2018-03-04 07:29 | ED ---
General Adult HPI - General Chief complaint: Alcohol Stated complaint: Alcohol Time Seen by Provider: 03/04/18 07:00 Source: patient, RN notes reviewed Mode of arrival: ambulatory Limitations: no limitations - History of Present Illness Initial comments: This is a 57-year-old male who presents emergency Department stating he is here to get rehabilitated from alcohol. Patient states he wants us to transfer him down to [place] to [facility] [place]. She denies any physical complaints. Patient denies chest pain difficulty breathing shortest breath. Patient denies headache patient denies numbness weakness patient denies any lightheadedness or dizziness. Patient denies any abdominal pain patient denies nausea vomiting diarrhea. Patient denies any recent fever chills per patient states he feels actually fine he just wants to be transferred to [place]. - Related Data Home Medications Medication Instructions Recorded Confirmed Bismuth Subsalicylate 524 mg PO Q4H PRN 07/24/17 07/24/17 [Pepto-Bismol] D-Methorphan/PE/Acetaminophen 2 cap PO Q6H PRN 07/24/17 07/24/17 [Vicks Dayquil Liquicaps] Gabapentin [Neurontin] 300 mg PO BID 07/24/17 07/24/17 Sertraline [Zoloft] 150 mg PO DAILY 07/24/17 07/24/17 Previous Rx's Medication Instructions Recorded Budesonide-Formot 160-4.5 Mcg 2 puff INHALATION RT-BID #1 puff 07/26/17 [Symbicort 160-4.5 Mcg Inhaler] Ipratropium-Albuterol Nebulize 3 ml INHALATION RT-Q6H PRN #120 07/26/17 [Duoneb 0.5 mg-3 mg/3 ml Soln] ampul.neb Levofloxacin [Levaquin] 500 mg PO DAILY #5 tab 07/26/17 Thiamine [Vitamin B-1] 100 mg PO DAILY #30 tab 07/26/17 predniSONE 10 mg PO DIRECTED #30 tab 07/26/17 Allergies Allergy/AdvReac Type Severity Reaction Status Date / Time No Known Allergies Allergy Verified 03/04/18 06:21 Review of Systems ROS Statement: Those systems with pertinent positive or pertinent negative responses have been documented in the HPI. ROS Other: All systems not noted in ROS Statement are negative. Past Medical History Past Medical History: No Reported History Additional Past Medical History / Comment(s): chronic neck pain History of Any Multi-Drug Resistant Organisms: None Reported Past Surgical History: Orthopedic Surgery Past Anesthesia/Blood Transfusion Reactions: No Reported Reaction Past Psychological History: Depression Smoking Status: Never smoker Past Alcohol Use History: None Reported Past Drug Use History: None Reported - Past Family History Mother Family Medical History: Cancer General Exam - General Exam Comments Initial Comments: GENERAL: Patient is well-developed and well-nourished. Patient is nontoxic and well- hydrated and is in no acute distress. Patient does not appear intoxicated ENT: Neck is soft and supple. No significant lymphadenopathy is noted. Oropharynx is clear. Moist mucous membranes. Neck has full range of motion without eliciting any pain. EYES: The sclera were anicteric and conjunctiva were pink and moist. Extraocular movements were intact and pupils were equal round and reactive to light. Eyelids were unremarkable. PULMONARY: Unlabored respirations. Good breath sounds bilaterally. No audible rales rhonchi or wheezing was noted. CARDIOVASCULAR: There is a regular rate and rhythm without any murmurs gallops or rubs. Patient 's rate is 90 beats a minute ABDOMEN: Soft and nontender with normal bowel sounds. No palpable organomegaly was noted. There is no palpable pulsatile mass. SKIN: Skin is clear with no lesions or rashes and otherwise unremarkable. NEUROLOGIC: Patient is alert and oriented x3. Cranial nerves II through XII are grossly intact. Motor and sensory are also intact. Normal speech, volume and content. Symmetrical smile. MUSCULOSKELETAL: Normal extremities with adequate strength and full range of motion. No lower extremity swelling or edema. No calf tenderness. LYMPHATICS: No significant lymphadenopathy is noted PSYCHIATRIC: Normal psychiatric evaluation. Limitations: no limitations Course Vital Signs 03/04/18 06:17 Temperature 98.3 F Pulse Rate 107 H Respiratory 20 Rate Blood Pressure 132/85 O2 Sat by Pulse 99 Oximetry Medical Decision Making - Medical Decision Making After telling the patient we were not able to any rehabilitation he said he is currently he got up and got dressed and walked out. I asked the patient again if anything vomiting physically he said he felt completely fine. Patient was stable on his feet did not appear to be intoxicated at this time. Disposition Clinical Impression: Alcohol abuse Disposition: Left Against Medical Advice Referrals: None,Stated [Primary Care Provider] - 1-2 days Time of Disposition: 07:29
== END 2018-03-04 07:50 | disposition left against medical advice (07) ==
LOC: EC 06:15
DX: F10.10 Alcohol abuse, uncomplicated (principal); F32.9 Major depressive disorder, single episode, unspecified; Z79.899 Other long term (current) drug therapy
CPT/HCPCS: 99283

== ENCOUNTER 2018-04-26 15:06 | Emergency (ER) | payer OTHER ==
[2018-04-26] MEDS ORDERED: ACETAMINOPHEN TAB 325 MG TAB PO STA (15:27)
[2018-04-26] MEDS ORDERED: SODIUM CHLORIDE 0.9% 1,000 ML IV ONE (15:27)
--- NOTE | 2018-04-26 15:28 | ED ---
URI HPI - General Chief Complaint: Upper Respiratory Infection Stated Complaint: sore throat, ear pain, chills Source: patient Mode of arrival: ambulatory Limitations: no limitations - History of Present Illness Initial Comments: 57-year-old male presenting today for chief complaint of sore throat, body aches , chills and ear pain 2 days. Patient states that he has had these symptoms for 2 days, he states that sometimes he coughs so hard he looses his breath, denies any dyspnea at rest, dyspnea on exertion, chest pain, nausea, vomiting, abdominal pain. Patient states he thinks he had a fever however has not recorded a temperature at home. she states she has had a dull aching headache at home, he denies this being the worse headache of his life or sudden onset. Patient denies current headache. Patient states the pain in the left ear is greater than the right. Remaining review of systems negative, patient denies any recent neck pain, neck stiffness,back pain, numbness or tingling, dysuria or hematuria, constipation,or visual changes, or any other complaints. Upon arrival patient is febrile, heart rate elevated. He does appear nontoxic. - Related Data Home Medications Medication Instructions Recorded Confirmed Bismuth Subsalicylate 524 mg PO Q4H PRN 07/24/17 07/24/17 [Pepto-Bismol] D-Methorphan/PE/Acetaminophen 2 cap PO Q6H PRN 07/24/17 07/24/17 [Vicks Dayquil Liquicaps] Gabapentin [Neurontin] 300 mg PO BID 07/24/17 07/24/17 Sertraline [Zoloft] 150 mg PO DAILY 07/24/17 07/24/17 Previous Rx's Medication Instructions Recorded Budesonide-Formot 160-4.5 Mcg 2 puff INHALATION RT-BID #1 puff 07/26/17 [Symbicort 160-4.5 Mcg Inhaler] Ipratropium-Albuterol Nebulize 3 ml INHALATION RT-Q6H PRN #120 07/26/17 [Duoneb 0.5 mg-3 mg/3 ml Soln] ampul.neb Levofloxacin [Levaquin] 500 mg PO DAILY #5 tab 07/26/17 Thiamine [Vitamin B-1] 100 mg PO DAILY #30 tab 07/26/17 predniSONE 10 mg PO DIRECTED #30 tab 07/26/17 Oseltamivir [Tamiflu] 75 mg PO Q12HR 5 Days #10 cap 04/26/18 Allergies Allergy/AdvReac Type Severity Reaction Status Date / Time No Known Allergies Allergy Verified 03/04/18 06:21 Review of Systems ROS Statement: Those systems with pertinent positive or pertinent negative responses have been documented in the HPI. ROS Other: All systems not noted in ROS Statement are negative. Past Medical History Past Medical History: No Reported History Additional Past Medical History / Comment(s): chronic neck pain History of Any Multi-Drug Resistant Organisms: None Reported Past Surgical History: Orthopedic Surgery Past Anesthesia/Blood Transfusion Reactions: No Reported Reaction Past Psychological History: Depression Smoking Status: Current every day smoker Past Alcohol Use History: None Reported Past Drug Use History: None Reported - Past Family History Mother Family Medical History: Cancer General Exam - General Exam Comments Initial Comments: General: The patient is awake and alert, in no distress, and does not appear acutely ill. Eye: +3 mm pupils are equal, round and reactive to light, extra-ocular movements are intact. No nystagmus. There is normal conjunctiva bilaterally. No signs of icterus. Ears, nose, mouth and throat: There are moist mucous membranes and no oral lesions. oropharynx mildly erythematous there is no tonsillar enlargement exudates or lesions. He feels midline. No anterior cervical lymphadenopathy. Tympanic membranes are nonerythematous there is no retractions or bulging. External auditory canals are nonedematous or erythematous. no nuchal rigidity, negative Brudzinski and Kernig. Neck: The neck is supple, there is no tenderness or JVD. Cardiovascular: There is a regular rate and rhythm. No murmur, rub or gallop is appreciated. Respiratory: Lungs are clear to auscultation, respirations are non-labored, breath sounds are equal. No wheezes, stridor, rales, or rhonchi. Gastrointestinal: Soft, non-distended, non-tender abdomen without masses or organomegaly noted. There is no rebound or guarding present. No CVA tenderness. Bowel sounds are unremarkable. Musculoskeletal: Normal ROM, no tenderness. Strength 5/5. Sensation intact. Radial pulses equal bilaterally 2+. Neurological: A&O x 3. CN II-XII intact, There are no obvious motor or sensory deficits. Coordination appears grossly intact. Speech is normal. Skin: Skin is warm and dry and no rashes or lesions are noted. Psychiatric: Cooperative, appropriate mood & affect, normal judgment. Limitations: no limitations Course Vital Signs 04/26/18 04/26/18 04/26/18 15:21 15:48 16:01 Temperature 102.2 F H Pulse Rate 113 H 108 H Respiratory 24 20 Rate Blood Pressure 116/75 O2 Sat by Pulse 96 Oximetry 04/26/18 04/26/18 16:16 17:11 Temperature 100 F H Pulse Rate 104 H 98 Respiratory 18 Rate Blood Pressure 134/78 O2 Sat by Pulse 99 Oximetry Medical Decision Making - Medical Decision Making Well-appearing 57-year-old male symptoms concerning for influenza. Patient is an everyday smoker, mild rhonchi on examination. Otherwise lung gonzalez clear no findings concerning for consolidation. Chest x-ray negative for acute process or consolidation. Patient denies any chest pain. Pt had 1 Duoneb treatment, IM steroids. Influenza A positive. Pt given Tylenol for fever management, improvement of temperature and heart rate. Pt does not appear septic. Pt given RX for tamiflu as symptoms ongoing less than 72 hours. Pt has not taken tylenol or ibuprofen at home. Pt recommended use for fever and body aches at home outpatient. At this time I feel patient is stable for discharge with outpatient follow-up and symptomatic care. Patient is recommended to take off work for the next week due to patient being contagious. Pt is agreeable with plan and discharge. Discussed case with attending provider Dr. Gallardo prior to discharge. - Lab Data Lab Results 04/26/18 Range/Units 15:45 Influenza Type A RNA Detected H (Not Detectd) Influenza Type B (PCR) Not Detected (Not Detectd) Disposition Clinical Impression: Influenza A Disposition: HOME SELF-CARE Condition: Good Instructions (If sedation given, give patient instructions): Influenza (ED) Additional Instructions: Please use medication as discussed. Please follow-up with family doctor in the next 2 days.. Please return to emergency room if the symptoms increase or worsen or for any other concerns. Prescriptions: Oseltamivir [Tamiflu] 75 mg PO Q12HR 5 Days #10 cap Is patient prescribed a controlled substance at d/c from ED?: No Referrals: Nonstaff,Physician [Primary Care Provider] - 1-2 days [facility] [NON-STAFF] - 1-2 days Time of Disposition: 16:57
[2018-04-26] MEDS ORDERED: IPRATROPIUM-ALBUTEROL 3 ML NEB INHALATION STA (15:36)
[2018-04-26] MEDS ORDERED: methylPREDNISolone SOD SUCCI 125 MG/2 ML VIAL IM ONE (15:36)
--- NOTE | 2018-04-26 16:48 | XR ---
EXAMINATION TYPE: XR chest 2V DATE OF EXAM: 04/26/2018 COMPARISON: 07/24/2017 HISTORY: Fever TECHNIQUE: Frontal and lateral views of the chest are obtained. FINDINGS: Heart and mediastinum are normal. Lungs are clear of infiltrate. There is no pleural effus ion. Bony thorax is intact. IMPRESSION: Normal chest. No adverse change.
[2018-04-26] MEDS ORDERED: IBUPROFEN 600 MG TAB PO STA (16:55)
[2018-04-26 17:12] VITALS: BP 134/78; PULSE 98; RESP 18; TEMP 100
== END 2018-04-26 17:11 | disposition home or self-care (01) ==
LOC: EC 15:06
DX: J10.1 Influenza due to other identified influenza virus with other respiratory manifestations (principal); H92.03 Otalgia, bilateral; F17.200 Nicotine dependence, unspecified, uncomplicated; F32.9 Major depressive disorder, single episode, unspecified; Z79.899 Other long term (current) drug therapy
CPT/HCPCS: 94640; 87502; 71046; 99284; 96372; J2930

== ENCOUNTER 2018-04-28 16:31 | Observation (INO) | payer OTHER ==
[2018-04-28] MEDS ORDERED: IPRATROPIUM-ALBUTEROL 3 ML NEB INHALATION STA (17:39)
[2018-04-28] MEDS ORDERED: SODIUM CHLORIDE 0.9% 1,000 ML IV STA (17:39)
[2018-04-28] MEDS ORDERED: methylPREDNISolone SOD SUCCI 125 MG/2 ML VIAL IV STA (17:39)
--- NOTE | 2018-04-28 17:43 | ED ---
General Adult HPI - General Chief complaint: Shortness of Breath Stated complaint: Diff Breathing Time Seen by Provider: 04/28/18 17:17 Source: patient, RN notes reviewed Mode of arrival: ambulatory Limitations: no limitations - History of Present Illness Initial comments: Patient is a pleasant 57-year-old male presenting to the emergency Department with complaints of difficulty breathing. Symptoms started around 3 days ago. Patient was here couple of days ago and diagnosed with influenza. Patient has occasional cough. Patient has some chest congestion not able to get much up. Patient was started on Tamiflu. Patient received a single dose of IV steroids. Patient is not on oral steroids. Patient does have a diagnosis of COPD just within the last year with similar symptoms. Patient does feel short of breath with exertion. No leg pain or leg swelling. No chest pain. - Related Data Home Medications Medication Instructions Recorded Confirmed Gabapentin [Neurontin] 300 mg PO BID 07/24/17 04/28/18 Sertraline [Zoloft] 100 mg PO QAM 07/24/17 04/28/18 Disulfiram [Antabuse] 250 mg PO DAILY 04/28/18 04/28/18 Fluticasone Nasal [place] [Flonase 1 - 2 spray EA NOSTRIL DAILY PRN 04/28/1804/28 Nasal [place]] Sertraline [Zoloft] 50 mg PO HS 04/28/18 04/28/18 Allergies Allergy/AdvReac Type Severity Reaction Status Date / Time No Known Allergies Allergy Verified 04/28/18 17:47 Review of Systems ROS Statement: Those systems with pertinent positive or pertinent negative responses have been documented in the HPI. ROS Other: All systems not noted in ROS Statement are negative. Constitutional: Denies: fever Eyes: Denies: eye pain ENT: Denies: ear pain Respiratory: Reports: cough, dyspnea Cardiovascular: Denies: chest pain Endocrine: Reports: fatigue Gastrointestinal: Denies: vomiting Genitourinary: Denies: dysuria Musculoskeletal: Denies: back pain Skin: Denies: rash Neurological: Denies: weakness Past Medical History Past Medical History: No Reported History Additional Past Medical History / Comment(s): chronic neck pain History of Any Multi-Drug Resistant Organisms: None Reported Past Surgical History: Orthopedic Surgery Past Anesthesia/Blood Transfusion Reactions: No Reported Reaction Past Psychological History: Depression Smoking Status: Current every day smoker Past Alcohol Use History: None Reported Past Drug Use History: None Reported - Past Family History Mother Family Medical History: Cancer General Exam Limitations: no limitations General appearance: alert, in no apparent distress Head exam: Present: atraumatic Eye exam: Present: normal appearance, PERRL ENT exam: Present: normal oropharynx Neck exam: Present: normal inspection Respiratory exam: Present: wheezes, decreased breath sounds Cardiovascular Exam: Present: regular rate, normal rhythm GI/Abdominal exam: Present: soft. Absent: tenderness Extremities exam: Present: normal inspection. Absent: pedal edema, calf tenderness Back exam: Present: normal inspection Neurological exam: Present: alert Psychiatric exam: Present: normal affect, normal mood Skin exam: Present: normal color Course Vital Signs 04/28/18 04/28/18 04/28/18 17:13 18:28 18:42 Temperature 98.6 F Pulse Rate 92 60 64 Respiratory 20 Rate Blood Pressure 126/83 O2 Sat by Pulse 96 Oximetry Medical Decision Making - Medical Decision Making Patient reevaluated and states only slight improvement. Lung sounds only slightly improved. Patient updated on results and plan. Case was discussed in detail with Dr. rincon, covering for hospital call, who will admit. - Lab Data Result diagrams: 04/28/18 17:25 04/28/18 17:25 Lab Results 04/28/18 04/28/18 Range/Units 17:25 17:25 WBC 8.2 (3.8-10.6) k/uL RBC 4.20 L (4.30-5.90) m/uL Hgb 13.6 (13.0-17.5) gm/dL Hct 40.1 (39.0-53.0) % MCV 95.3 (80.0-100.0) fL MCH 32.3 (25.0-35.0) pg MCHC 33.9 (31.0-37.0) g/dL RDW 12.2 (11.5-15.5) % Plt Count 165 (150-450) k/uL Neutrophils % 76 % Lymphocytes % 17 % Monocytes % 5 % Eosinophils % 1 % Basophils % 0 % Neutrophils # 6.2 (1.3-7.7) k/uL Lymphocytes # 1.4 (1.0-4.8) k/uL Monocytes # 0.4 (0-1.0) k/uL Eosinophils # 0.1 (0-0.7) k/uL Basophils # 0.0 (0-0.2) k/uL Sodium 140 (137-145) mmol/L Potassium 3.6 (3.5-5.1) mmol/L Chloride 106 (98-107) mmol/L Carbon Dioxide 28 (22-30) mmol/L Anion Gap 6 mmol/L BUN 10 (9-20) mg/dL Creatinine 0.60 L (0.66-1.25) mg/dL Est GFR (CKD-EPI)AfAm >90 (>60 ml/min/1.73 sqM) Est GFR (CKD-EPI)NonAf >90 (>60 ml/min/1.73 sqM) Glucose 79 (74-99) mg/dL Calcium 8.6 (8.4-10.2) mg/dL Total Bilirubin 0.4 (0.2-1.3) mg/dL AST 76 H (17-59) U/L ALT 41 (21-72) U/L Alkaline Phosphatase 53 (38-126) U/L Total Protein 6.8 (6.3-8.2) g/dL Albumin 3.8 (3.5-5.0) g/dL - Radiology Data Radiology results: image reviewed (Chest x-ray shows no acute process) Disposition Clinical Impression: Influenza A, COPD exacerbation Disposition: ADMITTED IP TO THIS HOSP Is patient prescribed a controlled substance at d/c from ED?: No Referrals: Nonstaff,Physician [Primary Care Provider] - 1-2 days Decision Time: 19:48
[2018-04-28 18:22] LABS: Basophils % (A) 0 %; Eosinophils # (A) 0.1 k/uL (0-0.7); Eosinophils % (A) 1 %; HCT 40.1 % (39.0-53.0); HGB 13.6 gm/dL (13.0-17.5); Lymphocytes # (A) 1.4 k/uL (1.0-4.8); Lymphocytes % (A) 17 %; MCH 32.3 pg (25.0-35.0); MCHC 33.9 g/dL (31.0-37.0); MCV 95.3 fL (80.0-100.0); Mean Platelet Volume 6.9; Monocytes # (A) 0.4 k/uL (0-1.0); Monocytes % (A) 5 %; Neutrophils # (A) 6.2 k/uL (1.3-7.7); Neutrophils % (A) 76 %; Platelet Count 165 k/uL (150-450); RDW 12.2 % (11.5-15.5); WBC 8.2 k/uL (3.8-10.6)
--- NOTE | 2018-04-28 18:34 | XR ---
EXAMINATION TYPE: XR chest 2V DATE OF EXAM: 04/28/2018 COMPARISON: NONE HISTORY: Difficulty breathing TECHNIQUE: Frontal and lateral views of the chest are obtained. FINDINGS: Heart and mediastinum are normal. Lungs are clear of infiltrate. There is no heart failure . Costophrenic angles are clear. Bony thorax is intact. IMPRESSION: No active cardiopulmonary disease. Normal heart. No change.
[2018-04-28 18:37] LABS: ALT 41 U/L (21-72); AST 76 U/L (17-59); Albumin 3.8 g/dL (3.5-5.0); Alkaline Phosphatase 53 U/L (38-126); Anion Gap 6 mmol/L; Blood Urea Nitrogen 10 mg/dL (9-20); Calcium 8.6 mg/dL (8.4-10.2); Carbon Dioxide 28 mmol/L (22-30); Chloride 106 mmol/L (98-107); Glucose 79 mg/dL (74-99); Potassium 3.6 mmol/L (3.5-5.1); Sodium 140 mmol/L (137-145); Total Bilirubin 0.4 mg/dL (0.2-1.3); Total Protein 6.8 g/dL (6.3-8.2)
[2018-04-28] MEDS ORDERED: IPRATROPIUM-ALBUTEROL 3 ML NEB INHALATION PRN (19:48)
[2018-04-28] MEDS: OSELTAMIVIR 75 MG CAP PO SCH (20:37)
[2018-04-28 21:31] VITALS: BMI 20.7
[2018-04-28] MEDS: IPRATROPIUM-ALBUTEROL 3 ML NEB INHALATION SCH (21:44)
[2018-04-28] MEDS ORDERED: SERTRALINE 100 MG TAB PO SCH (22:30)
[2018-04-28] MEDS: SODIUM CHLORIDE 0.9% 1,000 ML IV SCH (22:38)
[2018-04-29] MEDS: methylPREDNISolone SOD SUCCI 125 MG/2 ML VIAL IV SCH ×3 (00:03→12:07)
[2018-04-29 02:13] VITALS: RESP 18
[2018-04-29] MEDS: SODIUM CHLORIDE 0.9% 1,000 ML IV SCH (05:48)
[2018-04-29] MEDS: IPRATROPIUM-ALBUTEROL 3 ML NEB INHALATION SCH ×3 (07:56→15:29)
[2018-04-29] MEDS ORDERED: SODIUM CHLORIDE 0.65% NASAL SPRAY 44 ML BTL NASAL PRN (08:46)
[2018-04-29] MEDS: OSELTAMIVIR 75 MG CAP PO SCH (08:46)
[2018-04-29] MEDS ORDERED: SERTRALINE 100 MG TAB PO SCH (09:00)
[2018-04-29] MEDS ORDERED: GABAPENTIN 300 MG CAP PO SCH (09:00)
[2018-04-29] MEDS ORDERED: DISULFIRAM 250 MG PO SCH (09:00)
[2018-04-29] MEDS ORDERED: NICOTINE 21MG/24HR PATCH TRANSDERM SCH (09:00)
--- NOTE | 2018-04-29 13:06 | P.HPIM ---
History of Present Illness 51-year-old gentleman came in was department with compensative shortness of breath he was diagnosed with influenza on Thursday is not on Tamiflu as per the patient although as per the ER physician note he was taking Tamiflu. Patient was given a single dose of IV steroids and after which patient still didn't feel well because of which patient was admitted patient continues to smoke although he didn't smoke much for last 2-3 days because of being sick patient was complaining of body aches doesn't have any fever. Patient is still wheezing a bit, chest x-ray did not show any pneumonic process. I did ablate the patient he did well saturations remained at 97% patient will be discharged on steroid taper along with doxycycline for 3 days as he is very high risk for secondary bacterial bronchitis considering his smoking history according cessation counseling was provided as well. Patient also comparing of cough without any significant sputum production Review of Systems REVIEW OF SYSTEMS: CONSTITUTIONAL: No fever, no malaise, no fatigue. HEENT: No recent visual problems or hearing problems. Denied any sore throat. CARDIOVASCULAR: No chest pain, orthopnea, PND, no palpitations, no syncope. PULMONARY: As mentioned in HPI GASTROINTESTINAL: No diarrhea, no nausea, no vomiting, no abdominal pain. NEUROLOGICAL: No headaches, no weakness, no numbness. HEMATOLOGICAL: Denies any bleeding or petechiae. GENITOURINARY: Denies any burning micturition, frequency, or urgency. MUSCULOSKELETAL/RHEUMATOLOGICAL: Denies any joint pain, swelling, or any muscle pain. ENDOCRINE: Denies any polyuria or polydipsia. The rest of the 14-point review of systems is negative. Past Medical History Past Medical History: COPD Additional Past Medical History / Comment(s): chronic neck pain, depression, migraines, pasr rt wrist fx-sx done History of Any Multi-Drug Resistant Organisms: None Reported Past Surgical History: Orthopedic Surgery Additional Past Surgical History / Comment(s): rt wrist sx "has plate and 9 titanium screws" Past Anesthesia/Blood Transfusion Reactions: No Reported Reaction Additional Past Anesthesia/Blood Transfusion Reaction / Comment(s): has never received a blood blood transfusion Smoking Status: Current some day smoker - Past Family History Mother Family Medical History: Cancer, Diabetes Mellitus Father History Unknown: Yes Additional Family Medical History / Comment(s): has'nt seen his father since age 3 Medications and Allergies Home Medications Medication Instructions Recorded Confirmed Type Gabapentin [Neurontin] 300 mg PO BID 07/24/17 04/28/18 History Sertraline [Zoloft] 100 mg PO QAM 07/24/17 04/28/18 History Disulfiram [Antabuse] 250 mg PO DAILY 04/28/18 04/28/18 History Fluticasone Nasal [place] [Flonase 1 - 2 spray EA NOSTRIL DAILY PRN 04/28/1804/28 History Nasal [place]] Sertraline [Zoloft] 50 mg PO HS 04/28/18 04/28/18 History Albuterol Inhaler [Ventolin Hfa 1 - 2 puff INHALATION Q6HR PRN #1 04/29/18 Rx Inhaler] inhaler Budesonide-Formot 160-4.5 Mcg 2 puff INHALATION BID #1 inhaler 04/29/18 Rx [Symbicort 160-4.5 Mcg Inhaler] Doxycycline Monohydrate [Monodox] 100 mg PO BID 3 Days #6 cap 04/29/18 Rx Omeprazole [PriLOSEC] 40 mg PO AC-BRKFST #14 capsule. 04/29/18 Rx Oseltamivir [Tamiflu] 75 mg PO Q12HR #10 cap 04/29/18 Rx Tiotropium [place] [Spiriva] 1 cap INHALATION DAILY #1 device 04/29/18 Rx predniSONE 10 mg PO DAILY #30 tab 04/29/18 Rx Allergies Allergy/AdvReac Type Severity Reaction Status Date / Time No Known Allergies Allergy Verified 04/28/18 17:47 Physical Exam Vitals: Vital Signs Temp Pulse Pulse Resp BP BP Pulse Ox 04/29/18 12:29 72 04/29/18 12:17 76 04/29/18 08:08 76 04/29/18 07:56 72 04/29/18 05:50 98.1 F 65 18 134/75 97 04/28/18 23:00 98.2 F 84 18 126/71 96 04/28/18 21:54 80 16 04/28/18 21:45 84 16 04/28/18 20:18 77 20 121/85 94 L 04/28/18 18:42 64 04/28/18 18:28 60 04/28/18 17:13 98.6 F 92 20 126/83 96 Intake and Output 04/28/18 04/29/18 04/29/18 22:59 06:59 14:59 Intake Total 650 1000 Balance 650 1000 Intake: Amount of Fluid Infused ( 400 ml) Oral 250 1000 Other: # Voids 1 1 Weight 67.585 kg PHYSICAL EXAMINATION: GENERAL: The patient is alert and oriented x3, not in any acute distress. Well developed, well nourished. HEENT: Pupils are round and equally reacting to light. EOMI. No scleral icterus. No conjunctival pallor. Normocephalic, atraumatic. No pharyngeal erythema. No thyromegaly. CARDIOVASCULAR: S1 and S2 present. No murmurs, rubs, or gallops. PULMONARY: Patient does have expiratory wheezing minimal fairly good air entry bilateral lung gonzalez ABDOMEN: Soft, nontender, nondistended, normoactive bowel sounds. No palpable organomegaly. MUSCULOSKELETAL: No joint swelling or deformity. EXTREMITIES: No cyanosis, clubbing, or pedal edema. NEUROLOGICAL: Gross neurological examination did not reveal any focal deficits. SKIN: No rashes. Results CBC & Chem 7: 04/28/18 17:25 04/28/18 17:25 Labs: Abnormal Lab Results - Last 24 Hours (Table) 04/28/18 04/28/18 Range/Units 17:25 17:25 RBC 4.20 L (4.30-5.90) m/uL Creatinine 0.60 L (0.66-1.25) mg/dL AST 76 H (17-59) U/L Thrombosis Risk Factor Assmnt - Choose All That Apply Any of the Below Risk Factors Present?: Yes Each Factor Represents 1 point: Age 41-60 years Thrombosis Risk Factor Assessment Total Risk Factor Score: 1 Thrombosis Risk Factor Assessment Level: Low Risk Assessment and Plan Plan: -COPD exacerbation: Management as mentioned in HPI itself -Influenza -Active nicotine use: Counseling was provided -Depression
--- NOTE | 2018-04-29 13:07 | P.DS ---
Providers Date of admission: 04/28/18 19:48 Attending physician: Charles Mcarthur MD Primary care physician: Physician Nonstaff Hospital Course: Please refer to my HPI Plan - Discharge Summary Discharge Rx Participant: Yes New Discharge Prescriptions: New Albuterol Inhaler [Ventolin Hfa Inhaler] 1 - 2 puff INHALATION Q6HR PRN #1 inhaler PRN Reason: Shortness Of Breath Or Wheezing Budesonide-Formot 160-4.5 Mcg [Symbicort 160-4.5 Mcg Inhaler] 2 puff INHALATION BID #1 inhaler Doxycycline Monohydrate [Monodox] 100 mg PO BID 3 Days #6 cap Omeprazole [PriLOSEC] 40 mg PO AC-BRKFST #14 capsule.dr predniSONE 10 mg PO DAILY #30 tab Tiotropium [place] [Spiriva] 1 cap INHALATION DAILY #1 device Oseltamivir [Tamiflu] 75 mg PO Q12HR #10 cap No Action Sertraline [Zoloft] 100 mg PO QAM Gabapentin [Neurontin] 300 mg PO BID Sertraline [Zoloft] 50 mg PO HS Disulfiram [Antabuse] 250 mg PO DAILY Fluticasone Nasal [place] [Flonase Nasal [place]] 1 - 2 spray EA NOSTRIL DAILY PRN PRN Reason: Allergy Symptoms Discharge Medication List Gabapentin [Neurontin] 300 mg PO BID 07/24/17 [History] Sertraline [Zoloft] 100 mg PO QAM 07/24/17 [History] Disulfiram [Antabuse] 250 mg PO DAILY 04/28/18 [History] Fluticasone Nasal [place] [Flonase Nasal [place]] 1 - 2 spray EA NOSTRIL DAILY PRN 04/28/18 [History] Sertraline [Zoloft] 50 mg PO HS 04/28/18 [History] Albuterol Inhaler [Ventolin Hfa Inhaler] 1 - 2 puff INHALATION Q6HR PRN #1 inhaler 04/29/18 [Rx] Budesonide-Formot 160-4.5 Mcg [Symbicort 160-4.5 Mcg Inhaler] 2 puff INHALATION BID #1 inhaler 04/29/18 [Rx] Doxycycline Monohydrate [Monodox] 100 mg PO BID 3 Days #6 cap 04/29/18 [Rx] Omeprazole [PriLOSEC] 40 mg PO AC-BRKFST #14 capsule. 04/29/18 [Rx] Oseltamivir [Tamiflu] 75 mg PO Q12HR #10 cap 04/29/18 [Rx] Tiotropium [place] [Spiriva] 1 cap INHALATION DAILY #1 device 04/29/18 [Rx] predniSONE 10 mg PO DAILY #30 tab 04/29/18 [Rx] Follow up Appointment(s)/Referral(s): Nonstaff,Physician [Primary Care Provider] - 1-2 days Discharge Disposition: HOME SELF-CARE
[2018-04-29 14:55] VITALS: BP 120/75; TEMP 97.4
[2018-04-29 15:41] VITALS: PULSE 79
== END 2018-04-29 15:43 | disposition home or self-care (01) ==
LOC: EC 16:31 → 4MS4W 19:48
PROVIDERS: ADMIT Internal Medicine; ATTEND Internal Medicine
DX: J44.1 Chronic obstructive pulmonary disease with (acute) exacerbation (principal); J10.1 Influenza due to other identified influenza virus with other respiratory manifestations; F32.9 Major depressive disorder, single episode, unspecified; F17.200 Nicotine dependence, unspecified, uncomplicated; M54.2 Cervicalgia; G89.29 Other chronic pain; G43.909 Migraine, unspecified, not intractable, without status migrainosus; Z79.51 Long term (current) use of inhaled steroids; Z79.899 Other long term (current) drug therapy; Z87.81 Personal history of (healed) traumatic fracture; Z83.3 Family history of diabetes mellitus; Z80.52 Family history of malignant neoplasm of bladder
CPT/HCPCS: 96376; 96361 ×3; 96374; 99285; 36415; 94640 ×3; 80053; 85025; 71046; G0378 ×2; S4990; J2930 ×2

== ENCOUNTER 2018-08-30 13:28 | Emergency (ER) | payer OTHER ==
[2018-08-30 13:32] VITALS: TEMP 98.3
--- NOTE | 2018-08-30 14:51 | ED ---
General Adult HPI - General Source: police, RN notes reviewed Mode of arrival: ambulatory Limitations: no limitations <Mitchell Minor - Last Filed: 08/30/18 14:49> <Sean Mccullough - Last Filed: 09/06/18 16:11> - General Chief complaint: Psychiatric Symptoms Stated complaint: EPS eval Time Seen by Provider: 08/30/18 13:50 - History of Present Illness Initial comments: Patient is a 57-year-old male presenting to the emergency department with complaints of depression. Patient admits to drinking alcohol frequently. No street drug use. Patient omits to being depressed and having suicidal thoughts. Patient states he does have a plan however will not state what it is. No homicidal thoughts. Patient denies hallucinations. No physical complaints. (Mitchell Minor) Patient's care was signed out to me by previous shift physician. Briefly, patient is presenting with a alcohol intoxication. He did make some suicidal comments. Patient was sent out to me pending clinical sobriety EPS evaluation. Patient was evaluated by EPS pending recommendations. They're to be signed out to Dr. Aiken for follow-up of EPS recommendations. (Sean Mccullough) - Related Data Home Medications Medication Instructions Recorded Confirmed Sertraline [Zoloft] 150 mg PO QAM 07/24/17 08/30/18 Disulfiram [Antabuse] 250 mg PO DAILY 04/28/18 08/30/18 Fluticasone Nasal [place] [Flonase 1 spray EA NOSTRIL DAILY 04/28/18 08/30/18 Nasal [place]] Gabapentin [Neurontin] 400 mg PO BID 08/30/18 08/30/18 Loratadine 10 mg PO DAILY 08/30/18 08/30/18 Nicotine Polacrilex [Nicotine Gum] 4 mg BUCCAL Q4H PRN 08/30/18 08/30/18 Sildenafil Citrate [Viagra] 100 mg PO DIRECTED 08/30/18 08/30/18 Previous Rx's Medication Instructions Recorded Albuterol Inhaler [Ventolin Hfa 1 - 2 puff INHALATION Q6HR PRN #1 04/29/18 Inhaler] inhaler Allergies Allergy/AdvReac Type Severity Reaction Status Date / Time No Known Allergies Allergy Verified 08/30/18 14:55 Review of Systems ROS Other: All systems not noted in ROS Statement are negative. Constitutional: Denies: fever Eyes: Denies: eye pain ENT: Denies: ear pain Respiratory: Denies: cough Cardiovascular: Denies: chest pain Endocrine: Denies: fatigue Gastrointestinal: Denies: abdominal pain Genitourinary: Denies: dysuria Musculoskeletal: Denies: back pain Skin: Denies: rash Neurological: Denies: weakness Psychiatric: Reports: depression, suicidal thoughts. Denies: auditory fcaundo lucinations, visual hallucinations, homicidal thoughts <Mitchell Minor - Last Filed: 08/30/18 14:49> ROS Other: All systems not noted in ROS Statement are negative. <Sean Mccullough - Last Filed: 09/06/18 16:11> ROS Statement: Those systems with pertinent positive or pertinent negative responses have been documented in the HPI. Past Medical History Past Medical History: COPD Additional Past Medical History / Comment(s): chronic neck pain, depression, migraines, pasr rt wrist fx-sx done History of Any Multi-Drug Resistant Organisms: None Reported Past Surgical History: Orthopedic Surgery Additional Past Surgical History / Comment(s): rt wrist sx "has plate and 9 titanium screws" Past Anesthesia/Blood Transfusion Reactions: No Reported Reaction Additional Past Anesthesia/Blood Transfusion Reaction / Comment(s): has never received a blood blood transfusion Past Psychological History: Depression Smoking Status: Current every day smoker Past Alcohol Use History: Daily Past Drug Use History: None Reported - Past Family History Mother Family Medical History: Cancer, Diabetes Mellitus Father History Unknown: Yes Additional Family Medical History / Comment(s): has'nt seen his father since age 3 <Mitchell Minor - Last Filed: 08/30/18 14:49> General Exam Limitations: no limitations General appearance: alert, in no apparent distress Head exam: Present: atraumatic Eye exam: Present: normal appearance, PERRL ENT exam: Present: normal oropharynx Neck exam: Present: normal inspection Respiratory exam: Present: normal lung sounds bilaterally Cardiovascular Exam: Present: regular rate, normal rhythm GI/Abdominal exam: Present: soft. Absent: tenderness Extremities exam: Present: normal inspection Neurological exam: Present: alert Psychiatric exam: Present: normal affect, normal mood Skin exam: Present: normal color <Mitchell Minor - Last Filed: 08/30/18 14:49> Course Vital Signs 08/30/18 08/30/18 08/31/18 13:28 18:23 06:19 Temperature 98.3 F Pulse Rate 91 72 70 Respiratory 18 16 16 Rate Blood Pressure 127/91 115/89 127/81 O2 Sat by Pulse 99 96 Oximetry Medical Decision Making - Lab Data Result diagrams: 08/31/18 03:35 08/31/18 03:35 <Sean Mccullough - Last Filed: 09/06/18 16:11> - Medical Decision Making Patient was sent out to Dr. Aiken. Completion of documentation was performed after disposition patient by Dr. Aiken. (Sean Mccullough) - Lab Data Lab Results 08/31/18 08/31/18 08/31/18 Range/Units 03:35 03:35 03:35 WBC 5.5 (3.8-10.6) k/uL RBC 4.59 (4.30-5.90) m/uL Hgb 15.1 (13.0-17.5) gm/dL Hct 44.8 (39.0-53.0) % MCV 97.6 (80.0-100.0) fL MCH 33.0 (25.0-35.0) pg MCHC 33.8 (31.0-37.0) g/dL RDW 13.0 (11.5-15.5) % Plt Count 201 (150-450) k/uL Neutrophils % 54 % Lymphocytes % 32 % Monocytes % 9 % Eosinophils % 2 % Basophils % 1 % Neutrophils # 2.9 (1.3-7.7) k/uL Lymphocytes # 1.7 (1.0-4.8) k/uL Monocytes # 0.5 (0-1.0) k/uL Eosinophils # 0.1 (0-0.7) k/uL Basophils # 0.0 (0-0.2) k/uL Sodium 141 (137-145) mmol/L Potassium 4.3 (3.5-5.1) mmol/L Chloride 110 H (98-107) mmol/L Carbon Dioxide 26 (22-30) mmol/L Anion Gap 5 mmol/L BUN 11 (9-20) mg/dL Creatinine 0.77 (0.66-1.25) mg/dL Est GFR (CKD-EPI)AfAm >90 (>60 ml/min/1.73 sqM) Est GFR (CKD-EPI)NonAf >90 (>60 ml/min/1.73 sqM) Glucose 94 (74-99) mg/dL Calcium 9.5 (8.4-10.2) mg/dL Total Bilirubin 0.4 (0.2-1.3) mg/dL AST 46 (17-59) U/L ALT 19 L (21-72) U/L Alkaline Phosphatase 57 (38-126) U/L Total Protein 6.7 (6.3-8.2) g/dL Albumin 3.9 (3.5-5.0) g/dL Urine Color Yellow Urine Appearance Cloudy (Clear) Urine pH 6.0 (5.0-8.0) Ur Specific [place] 1.016 (1.001-1.035) Urine Protein Negative (Negative) Urine Glucose (UA) Negative (Negative) Urine Ketones Negative (Negative) Urine Blood Negative (Negative) Urine Nitrite Negative (Negative) Urine Bilirubin Negative (Negative) Urine Urobilinogen <2.0 (<2.0) mg/dL Ur Leukocyte Esterase Moderate H (Negative) Urine RBC 2 (0-5) /hpf Urine WBC 9 H (0-5) /hpf Ur Squamous Epith Cells 13 H (0-4) /hpf Urine Bacteria Rare H (None) /hpf Hyaline Casts 16 H (0-2) /lpf Urine Mucus Rare H (None) /hpf Urine Opiates Screen Not Detected (NotDetected) Ur Oxycodone Screen Not Detected (NotDetected) Urine Methadone Screen Not Detected (NotDetected) Ur Propoxyphene Screen Not Detected (NotDetected) Ur Barbiturates Screen Not Detected (NotDetected) U Tricyclic Antidepress Not Detected (NotDetected) Ur Phencyclidine Scrn Not Detected (NotDetected) Ur Amphetamines Screen Not Detected (NotDetected) U Methamphetamines Scrn Not Detected (NotDetected) U Benzodiazepines Scrn Not Detected (NotDetected) Urine Cocaine Screen Not Detected (NotDetected) U Marijuana (THC) Screen Not Detected (NotDetected) Disposition <Mitchell Minor - Last Filed: 08/30/18 14:49> Is patient prescribed a controlled substance at d/c from ED?: No Time of Disposition: 16:10 <Sean Mccullough - Last Filed: 09/06/18 16:11> Clinical Impression: Alcohol intoxication, Suicidal ideation Disposition: HOME SELF-CARE Condition: Fair Referrals: None,Stated [Primary Care Provider] - 1-2 days
[2018-08-30] MEDS ORDERED: ACETAMINOPHEN TAB 500 MG TAB PO STA (18:18)
[2018-08-30 18:25] VITALS: RESP 16
[2018-08-31 04:08] LABS: ALT 19 U/L (21-72); AST 46 U/L (17-59); African American GFR (CKD) >90 (>60 ml/min/1.73 sqM); Albumin 3.9 g/dL (3.5-5.0); Alkaline Phosphatase 57 U/L (38-126); Anion Gap 5 mmol/L; Blood Urea Nitrogen 11 mg/dL (9-20); Calcium 9.5 mg/dL (8.4-10.2); Carbon Dioxide 26 mmol/L (22-30); Chloride 110 mmol/L (98-107); Glucose 94 mg/dL (74-99); Potassium 4.3 mmol/L (3.5-5.1); Sodium 141 mmol/L (137-145); Total Bilirubin 0.4 mg/dL (0.2-1.3); Total Protein 6.7 g/dL (6.3-8.2)
[2018-08-31 04:14] LABS: Amphetamine Screen,Urine Not Detected (NotDetected); Cocaine Screen,Urine Not Detected (NotDetected); Opiate Screen,Urine Not Detected (NotDetected); Phencyclidine Screen,Urine Not Detected (NotDetected)
[2018-08-31 04:15] LABS: Barbiturate Screen,Urine Not Detected (NotDetected); Benzodiazepines Screen,Urine Not Detected (NotDetected); Methadone Screen, Urine Not Detected (NotDetected); Oxycodone Screen, Urine Not Detected (NotDetected); Tricyclic Antidepressant,Urine Not Detected (NotDetected); Urn Cannabinoid Scrn Not Detected (NotDetected)
[2018-08-31 04:30] LABS: Basophils % (A) 1 %; Eosinophils # (A) 0.1 k/uL (0-0.7); Eosinophils % (A) 2 %; HCT 44.8 % (39.0-53.0); HGB 15.1 gm/dL (13.0-17.5); Lymphocytes # (A) 1.7 k/uL (1.0-4.8); Lymphocytes % (A) 32 %; MCHC 33.8 g/dL (31.0-37.0); MCV 97.6 fL (80.0-100.0); Mean Platelet Volume 7.1; Monocytes # (A) 0.5 k/uL (0-1.0); Monocytes % (A) 9 %; Neutrophils # (A) 2.9 k/uL (1.3-7.7); Neutrophils % (A) 54 %; Platelet Count 201 k/uL (150-450); RBC 4.59 m/uL (4.30-5.90); WBC 5.5 k/uL (3.8-10.6)
[2018-08-31 05:03] LABS: Appearance,Urine Cloudy (Clear); Bacteria,Urine Rare /hpf; Bilirubin,Urine Negative (Negative); Blood,Urine Negative (Negative); Color,Urine Yellow; Glucose,Urine (UA) Negative (Negative); Hyaline Casts,Urine 16 /lpf (0-2); Ketones,Urine Negative (Negative); Leukocyte Esterase,Urine Moderate (Negative); Mucus,Urine Rare /hpf; Nitrite,Urine Negative (Negative); Protein,Urine Negative (Negative); RBC,Urine 2 /hpf (0-5); Specific Gravity,Urine 1.016 (1.001-1.035); Squamous Epithelial Cell,Urine 13 /hpf (0-4); Urobilinogen,Urine <2.0 mg/dL (<2.0); WBC,Urine 9 /hpf (0-5)
[2018-08-31 06:22] VITALS: BP 127/81; PULSE 70
== END 2018-08-31 10:20 | disposition home or self-care (01) ==
LOC: EC 13:28
DX: R45.851 Suicidal ideations (principal); F10.129 Alcohol abuse with intoxication, unspecified; F32.9 Major depressive disorder, single episode, unspecified; J44.9 Chronic obstructive pulmonary disease, unspecified; F17.200 Nicotine dependence, unspecified, uncomplicated; Z79.899 Other long term (current) drug therapy
CPT/HCPCS: 36415; 80053; 80306; 81001; 82075; 85025; 99285

== ENCOUNTER 2019-07-12 15:01 | Emergency (ER) | payer OTHER ==
[2019-07-12 15:11] VITALS: PULSE 99
--- NOTE | 2019-07-12 15:59 | ED ---
General Adult HPI - General Source: patient, RN notes reviewed Mode of arrival: ambulatory Limitations: no limitations <Mitchell Minor - Last Filed: 07/12/19 15:58> <Diego Melchor - Last Filed: 07/13/19 00:39> - General Chief complaint: Psychiatric Symptoms Stated complaint: mental health Time Seen by Provider: 07/12/19 15:20 - History of Present Illness Initial comments: Patient is a pleasant 58-year-old male presenting to the emergency Department with complaints of depression and suicidal thoughts. Onset of symptoms was 2 months ago. Patient has suicidal thoughts of jumping into the river. Patient denies history of similar symptoms previously. No homicidal thoughts. No physical complaints. Occasional marijuana use. Patient does drink alcohol frequently. (Mitchell Minor) - Related Data Home Medications Medication Instructions Recorded Confirmed Sertraline [Zoloft] 150 mg PO QAM 07/24/17 08/30/18 Disulfiram [Antabuse] 250 mg PO DAILY 04/28/18 08/30/18 Fluticasone Nasal [place] [Flonase 1 spray EA NOSTRIL DAILY 04/28/18 08/30/18 Nasal [place]] Gabapentin [Neurontin] 400 mg PO BID 08/30/18 08/30/18 Loratadine 10 mg PO DAILY 08/30/18 08/30/18 Nicotine Polacrilex [Nicotine Gum] 4 mg BUCCAL Q4H PRN 08/30/18 08/30/18 Sildenafil Citrate [Viagra] 100 mg PO DIRECTED 08/30/18 08/30/18 Previous Rx's Medication Instructions Recorded Albuterol Inhaler (Mhu) [Ventolin 1 - 2 puff INHALATION Q6HR PRN #1 04/29/18 Hfa Inhaler (Mhu)] inhaler Allergies Allergy/AdvReac Type Severity Reaction Status Date / Time No Known Allergies Allergy Verified 07/12/19 15:11 Review of Systems ROS Other: All systems not noted in ROS Statement are negative. Constitutional: Denies: fever Eyes: Denies: eye pain ENT: Denies: ear pain Respiratory: Denies: dyspnea Cardiovascular: Denies: chest pain Endocrine: Denies: fatigue Gastrointestinal: Denies: abdominal pain Genitourinary: Denies: dysuria Musculoskeletal: Denies: back pain Skin: Denies: rash Neurological: Denies: weakness Psychiatric: Reports: depression, suicidal thoughts. Denies: auditory hallucinations, visual hallucinations, homicidal thoughts <IvánMitchell - Last Filed: 07/12/19 15:58> ROS Other: All systems not noted in ROS Statement are negative. <Diego Melchor - Last Filed: 07/13/19 00:39> ROS Statement: Those systems with pertinent positive or pertinent negative responses have been documented in the HPI. Past Medical History Past Medical History: COPD Additional Past Medical History / Comment(s): chronic neck pain, depression, migraines, pasr rt wrist fx-sx done History of Any Multi-Drug Resistant Organisms: None Reported Past Surgical History: Orthopedic Surgery Additional Past Surgical History / Comment(s): rt wrist sx "has plate and 9 titanium screws" Past Anesthesia/Blood Transfusion Reactions: No Reported Reaction Additional Past Anesthesia/Blood Transfusion Reaction / Comment(s): has never received a blood blood transfusion Past Psychological History: Depression Smoking Status: Current every day smoker Past Alcohol Use History: Daily Past Drug Use History: None Reported - Past Family History Mother Family Medical History: Cancer, Diabetes Mellitus Father History Unknown: Yes Additional Family Medical History / Comment(s): has'nt seen his father since age 3 <IvánMitchell - Last Filed: 07/12/19 15:58> General Exam Limitations: no limitations General appearance: alert, in no apparent distress, appears intoxicated Head exam: Present: normocephalic Eye exam: Present: normal appearance ENT exam: Present: normal oropharynx Neck exam: Present: normal inspection Respiratory exam: Present: normal lung sounds bilaterally Cardiovascular Exam: Present: regular rate, normal rhythm GI/Abdominal exam: Present: soft. Absent: tenderness Extremities exam: Present: normal inspection Neurological exam: Present: alert. Absent: motor sensory deficit Psychiatric exam: Present: depressed Skin exam: Present: normal color <IvánMitchell - Last Filed: 07/12/19 15:58> Course Vital Signs 07/12/19 15:06 Temperature 98.3 F Pulse Rate 99 Respiratory 18 Rate Blood Pressure 146/103 O2 Sat by Pulse 99 Oximetry Medical Decision Making - Lab Data Lab Results 07/12/19 Range/Units 21:02 Urine Opiates Screen Not Detected (NotDetected) Ur Oxycodone Screen Not Detected (NotDetected) Urine Methadone Screen Not Detected (NotDetected) Ur Propoxyphene Screen Not Detected (NotDetected) Ur Barbiturates Screen Not Detected (NotDetected) U Tricyclic Antidepress Not Detected (NotDetected) Ur Phencyclidine Scrn Not Detected (NotDetected) Ur Amphetamines Screen Not Detected (NotDetected) U Methamphetamines Scrn Not Detected (NotDetected) U Benzodiazepines Scrn Not Detected (NotDetected) Urine Cocaine Screen Not Detected (NotDetected) U Marijuana (THC) Screen Detected H (NotDetected) Disposition <Mitchell Minor - Last Filed: 07/12/19 15:58> Is patient prescribed a controlled substance at d/c from ED?: No <Diego Melchor - Last Filed: 07/13/19 00:39> Clinical Impression: Mood disorder Disposition: HOME SELF-CARE Condition: Good Instructions (If sedation given, give patient instructions): Mood Disorders (ED) Referrals: None,Stated [Primary Care Provider] - 1-2 days
[2019-07-12 21:25] LABS: Amphetamine Screen,Urine Not Detected (NotDetected); Barbiturate Screen,Urine Not Detected (NotDetected); Benzodiazepines Screen,Urine Not Detected (NotDetected); Cocaine Screen,Urine Not Detected (NotDetected); Methadone Screen, Urine Not Detected (NotDetected); Opiate Screen,Urine Not Detected (NotDetected); Oxycodone Screen, Urine Not Detected (NotDetected); Phencyclidine Screen,Urine Not Detected (NotDetected); Tricyclic Antidepressant,Urine Not Detected (NotDetected); Urn Cannabinoid Scrn Detected (NotDetected)
[2019-07-13 00:44] VITALS: BP 125/86; RESP 16; TEMP 97.7
== END 2019-07-13 00:49 | disposition home or self-care (01) ==
LOC: EC 15:01
DX: F32.9 Major depressive disorder, single episode, unspecified (principal); J44.9 Chronic obstructive pulmonary disease, unspecified; F17.200 Nicotine dependence, unspecified, uncomplicated; Z79.51 Long term (current) use of inhaled steroids; Z79.899 Other long term (current) drug therapy
CPT/HCPCS: 80306; 82075; 99285

== ENCOUNTER 2019-07-15 15:03 | Emergency (ER) | payer OTHER ==
[2019-07-15 15:10] VITALS: RESP 18
--- NOTE | 2019-07-15 16:44 | ED ---
Psych HPI - General Source: patient, police, RN notes reviewed Mode of arrival: ambulatory - History of Present Illness MD Complaint: suicidal ideation, feels depressed, other <Jose Petersen - Last Filed: 07/15/19 23:04> <Mitchell Minor - Last Filed: 07/16/19 08:21> - General Chief Complaint: Psychiatric Symptoms Stated Complaint: mental health Time Seen by Provider: 07/15/19 15:11 - History of Present Illness Initial Comments: Is a 58-year-old male history depression and alcoholism who presents today with complaints of feeling depressed with suicidal thoughts of jumping in a local river. He does admit to drinking alcohol today he states she's been feeling like this for a while he was seen here several days ago and discharged with the plan he feels like he still suicidal today. Does admit to drinking alcohol today. (Jose Petersen) - Related Data Home Medications Medication Instructions Recorded Confirmed Sertraline [Zoloft] 150 mg PO QAM 07/24/17 08/30/18 Disulfiram [Antabuse] 250 mg PO DAILY 04/28/18 08/30/18 Fluticasone Nasal [place] [Flonase 1 spray EA NOSTRIL DAILY 04/28/18 08/30/18 Nasal [place]] Gabapentin [Neurontin] 400 mg PO BID 08/30/18 08/30/18 Loratadine 10 mg PO DAILY 08/30/18 08/30/18 Nicotine Polacrilex [Nicotine Gum] 4 mg BUCCAL Q4H PRN 08/30/18 08/30/18 Sildenafil Citrate [Viagra] 100 mg PO DIRECTED 08/30/18 08/30/18 Previous Rx's Medication Instructions Recorded Albuterol Inhaler (Mhu) [Ventolin 1 - 2 puff INHALATION Q6HR PRN #1 04/29/18 Hfa Inhaler (Mhu)] inhaler Allergies Allergy/AdvReac Type Severity Reaction Status Date / Time No Known Allergies Allergy Verified 07/15/19 15:10 Review of Systems ROS Other: All systems not noted in ROS Statement are negative. <Jose Petersen - Last Filed: 07/15/19 23:04> ROS Other: All systems not noted in ROS Statement are negative. <Mitchell Minor - Last Filed: 07/16/19 08:21> ROS Statement: Those systems with pertinent positive or pertinent negative responses have been documented in the HPI. Past Medical History Past Medical History: COPD Additional Past Medical History / Comment(s): chronic neck pain, depression, migraines, pasr rt wrist fx-sx done History of Any Multi-Drug Resistant Organisms: None Reported Past Surgical History: Orthopedic Surgery Additional Past Surgical History / Comment(s): rt wrist sx "has plate and 9 titanium screws" Past Anesthesia/Blood Transfusion Reactions: No Reported Reaction Additional Past Anesthesia/Blood Transfusion Reaction / Comment(s): has never received a blood blood transfusion Past Psychological History: Anxiety, Depression Smoking Status: Current every day smoker Past Alcohol Use History: Daily Past Drug Use History: None Reported - Past Family History Mother Family Medical History: Cancer, Diabetes Mellitus Father History Unknown: Yes Additional Family Medical History / Comment(s): has'nt seen his father since age 3 <Jose Petersen - Last Filed: 07/15/19 23:04> General Exam Limitations: no limitations General appearance: alert, in no apparent distress Head exam: Present: atraumatic, normocephalic, normal inspection Eye exam: Present: normal appearance, PERRL, EOMI. Absent: scleral icterus, conjunctival injection, periorbital swelling ENT exam: Present: normal exam, mucous membranes moist Neck exam: Present: normal inspection. Absent: tenderness, meningismus, lymphadenopathy Respiratory exam: Present: normal lung sounds bilaterally. Absent: respiratory distress, wheezes, rales, rhonchi, stridor Cardiovascular Exam: Present: regular rate, normal rhythm, normal heart sounds. Absent: systolic murmur, diastolic murmur, rubs, gallop, clicks GI/Abdominal exam: Present: soft, normal bowel sounds. Absent: distended, tenderness, guarding, rebound, rigid Extremities exam: Present: normal inspection, full ROM, normal capillary refill. Absent: tenderness, pedal edema, joint swelling, calf tenderness Back exam: Present: normal inspection Neurological exam: Present: alert, oriented X3, CN II-XII intact Psychiatric exam: Present: depressed, flat affect, suicidal ideation Skin exam: Present: warm, dry, intact, normal color. Absent: rash <Jose Petersen - Last Filed: 07/15/19 23:04> - General Exam Comments Initial Comments: This is a well-developed sec appearing male who is awake alert oriented x3 does have the smell of alcohol conjoiners on his breath (Jose Petersen) Course <Jose Petersen - Last Filed: 07/15/19 23:04> Vital Signs 07/15/19 07/16/19 15:04 06:53 Temperature 98.3 F 98.0 F Pulse Rate 91 83 Respiratory 18 18 Rate Blood Pressure 146/91 137/88 O2 Sat by Pulse 100 99 Oximetry - Reevaluation(s) Reevaluation #1: 07/15/19 23:04 The patient rested comfortably throughout the afternoon and evening pending EPS evaluation. The case will be endorsed to Dr. Banda at our shift change (Jose Petersen) Medical Decision Making <Mitchell Minor - Last Filed: 07/16/19 08:21> - Medical Decision Making Patient seen by mental health services with plan for patient reevaluated by myself, Dr. Minor. Patient resting comfortably in bed. Patient denies suicidal ideation and does contract for safety. Patient advised follow-up and discontinue alcohol use. (Mitchell Minor) - Lab Data Lab Results 07/15/19 Range/Units 22:21 Urine Opiates Screen Not Detected (NotDetected) Ur Oxycodone Screen Not Detected (NotDetected) Urine Methadone Screen Not Detected (NotDetected) Ur Propoxyphene Screen Not Detected (NotDetected) Ur Barbiturates Screen Not Detected (NotDetected) U Tricyclic Antidepress Not Detected (NotDetected) Ur Phencyclidine Scrn Not Detected (NotDetected) Ur Amphetamines Screen Not Detected (NotDetected) U Methamphetamines Scrn Not Detected (NotDetected) U Benzodiazepines Scrn Not Detected (NotDetected) Urine Cocaine Screen Not Detected (NotDetected) U Marijuana (THC) Screen Detected H (NotDetected) Disposition <NicolaJose - Last Filed: 07/15/19 23:04> Is patient prescribed a controlled substance at d/c from ED?: No Time of Disposition: 08:21 <Mitchell Minor - Last Filed: 07/16/19 08:21> Clinical Impression: Depression, Alcohol intoxication Disposition: HOME SELF-CARE Condition: Stable Instructions (If sedation given, give patient instructions): Abuse of Alcohol (ED), Depression (ED) Additional Instructions: Please follow-up with mental health services as instructed. Discontinue alcohol use. Return for thoughts of self-harm, worsening symptoms or other concerns. Referrals: Olga Abraham MD [REFERRING] - 1-2 days
[2019-07-15 22:45] LABS: Amphetamine Screen,Urine Not Detected (NotDetected); Barbiturate Screen,Urine Not Detected (NotDetected); Benzodiazepines Screen,Urine Not Detected (NotDetected); Cocaine Screen,Urine Not Detected (NotDetected); Methadone Screen, Urine Not Detected (NotDetected); Opiate Screen,Urine Not Detected (NotDetected); Phencyclidine Screen,Urine Not Detected (NotDetected); Tricyclic Antidepressant,Urine Not Detected (NotDetected)
[2019-07-15 22:46] LABS: Oxycodone Screen, Urine Not Detected (NotDetected); Urn Cannabinoid Scrn Detected (NotDetected)
[2019-07-16 07:19] VITALS: BP 137/88; PULSE 83; TEMP 98
== END 2019-07-16 08:27 | disposition home or self-care (01) ==
LOC: EC 15:03
DX: F32.9 Major depressive disorder, single episode, unspecified (principal); F10.129 Alcohol abuse with intoxication, unspecified; J44.9 Chronic obstructive pulmonary disease, unspecified; F41.9 Anxiety disorder, unspecified; F17.200 Nicotine dependence, unspecified, uncomplicated; Z79.899 Other long term (current) drug therapy
CPT/HCPCS: 80306; 82075; 99285

== ENCOUNTER 2023-12-17 21:29 | Emergency (ER) | payer OTHER ==
[2023-12-17 21:36] VITALS: RESP 18; TEMP 98
[2023-12-17 21:47] LABS: Glucose,Whole Blood 111 mg/dL (70-110)
--- NOTE | 2023-12-17 21:51 | ED ---
Dizziness HPI - General Source: patient, RN notes reviewed Mode of arrival: wheelchair <Suzi Davidson - Last Filed: 12/17/23 21:50> <Jose Moreno - Last Filed: 12/17/23 23:34> - General Chief Complaint: Syncope Stated Complaint: Syncope Time Seen by Provider: 12/17/23 21:50 - History of Present Illness Initial Comments: 63-year-old male presenting for evaluation after syncopal episode. Patient states that he was standing for a long period of time and started to feel dizzy, he went to go sit down but passed out. He was told that he started shaking as well. Patient reports that now he feels "fine". (Suzi Davidson) 63-year-old male with brief syncopal episode. Patient states he had been standing for a prolonged period of time and states that he had not eaten or had much to drink today. He momentarily passed out after feeling dizzy. He states this was just for several seconds. There was no postictal period. There is no injury. Patient feels fine at this time without chest pain or palpitations. No complaints. (Jose Moreno) - Related Data Home Medications Medication Instructions Recorded Confirmed Sertraline [Zoloft] 150 mg PO QAM 07/24/17 08/30/18 Disulfiram [Antabuse] 250 mg PO DAILY 04/28/18 08/30/18 Fluticasone Nasal [place] [Flonase 1 spray EA NOSTRIL DAILY 04/28/18 08/30/18 Nasal [place]] Gabapentin [Neurontin] 400 mg PO BID 08/30/18 08/30/18 Loratadine 10 mg PO DAILY 08/30/18 08/30/18 Nicotine Polacrilex [Nicotine Gum] 4 mg BUCCAL Q4H PRN 08/30/18 08/30/18 Sildenafil Citrate [Viagra] 100 mg PO DIRECTED 08/30/18 08/30/18 Previous Rx's Medication Instructions Recorded Albuterol Inhaler [Ventolin Hfa 1 - 2 puff INHALATION Q6HR PRN #1 04/29/18 Inhaler] inhaler Allergies Allergy/AdvReac Type Severity Reaction Status Date / Time No Known Allergies Allergy Verified 12/17/23 21:36 Review of Systems ROS Other: All systems not noted in ROS Statement are negative. <Suzi Davidson - Last Filed: 12/17/23 21:50> ROS Other: All systems not noted in ROS Statement are negative. <Jose Moreno - Last Filed: 12/17/23 23:34> ROS Statement: Those systems with pertinent positive or pertinent negative responses have been documented in the HPI. Past Medical History Past Medical History: COPD Additional Past Medical History / Comment(s): chronic neck pain, depression, migraines, pasr rt wrist fx-sx done History of Any Multi-Drug Resistant Organisms: None Reported Past Surgical History: Orthopedic Surgery Additional Past Surgical History / Comment(s): rt wrist sx "has plate and 9 titanium screws" Past Anesthesia/Blood Transfusion Reactions: No Reported Reaction Additional Past Anesthesia/Blood Transfusion Reaction / Comment(s): has never received a blood blood transfusion Past Psychological History: Anxiety, Depression Past Alcohol Use History: Daily Past Drug Use History: None Reported - Past Family History Mother Family Medical History: Cancer, Diabetes Mellitus Father History Unknown: Yes Additional Family Medical History / Comment(s): has'nt seen his father since age 3 <Suzi Davidson - Last Filed: 12/17/23 21:50> General Exam <Suzi Davidson - Last Filed: 12/17/23 21:50> General appearance: alert, in no apparent distress Head exam: Present: atraumatic, normocephalic Eye exam: Present: normal appearance, PERRL ENT exam: Present: normal exam, mucous membranes moist. Absent: mucous membranes dry Neck exam: Present: normal inspection. Absent: tenderness, meningismus Respiratory exam: Present: normal lung sounds bilaterally. Absent: respiratory distress Cardiovascular Exam: Present: regular rate, normal rhythm GI/Abdominal exam: Present: soft. Absent: distended, tenderness Extremities exam: Present: normal inspection, normal capillary refill. Absent: calf tenderness Neurological exam: Present: alert, oriented X3, CN II-XII intact. Absent: motor sensory deficit Psychiatric exam: Present: normal affect, normal mood Skin exam: Present: warm, dry, intact. Absent: cyanosis, diaphoretic <Jose Moreno - Last Filed: 12/17/23 23:34> - General Exam Comments Initial Comments: Visual Physical Exam Vital signs reviewed General: Well-appearing, nontoxic, no acute distress. Head: Normocephalic, atraumatic Eyes: PERRLA, EOMI ENT: Airway patent Chest: Nonlabored breathing Skin: No visual rash, normal skin tone Neuro: Alert and oriented 3 Musculoskeletal: No gross abnormalities (Suzi Davidson) Course Vital Signs 12/17/23 21:33 Temperature 98.0 F Pulse Rate 63 Respiratory 18 Rate Blood Pressure 100/65 O2 Sat by Pulse 96 Oximetry Medical Decision Making <Suzi Davidson - Last Filed: 12/17/23 21:50> - Lab Data Result diagrams: 12/17/23 21:49 12/17/23 21:49 <Jose Moreno - Last Filed: 12/17/23 23:34> - Medical Decision Making I performed the quick note portion of this visit, electronically signed Suzi Davidson PA-C (Suzi Davidson) Was pt. sent in by a medical professional or institution ([facility], [facility], urgent care, hospital, or fci...) When possible be specific @ -No Did you speak to anyone other than the patient for history (EMS, parent, family, police, friend...)? What history was obtained from this source @ -No Did you review nursing and triage notes (agree or disagree)? Why? @ -I reviewed and agree with nursing and triage notes Were old charts reviewed (outside hosp., previous admission, EMS record, old EKG, old radiological studies, urgent care reports/EKG's, fci records)? Report findings @ -No old charts were reviewed Differential Syncope: Valvular disease, hypertrophic cardiomyopathy, pulmonary embolism, tamponade, tachycardia, bradycardia, OR, hypovolemia, hemorrhage, dissection, anemia, intracranial hemorrhage, seizure, hypoglycemia, carbon monoxide poisoning, this is not meant to be an all-inclusive list. EKG interpreted by me (3pts min.). @ -EG: Sinus rhythm rate of 67, SD interval 147, QRS duration 94, QTc [address] segment elevation. X-rays interpreted by me (1pt min.). @ -[Chest X-ray negative for acute cardiopulmonary findings. CT interpreted by me (1pt min.). @ -None done U/S interpreted by me (1pt. min.). @ -None done What testing was considered but not performed or refused? (CT, X-rays, U/S, labs)? Why? @ -None What meds were considered but not given or refused? Why? @ -None Did you discuss the management of the patient with other professionals (professionals i.e. , PA, [facility], lab, RT, psych nurse, social media job titles, clinical information systems director, teacher, aviation safety officer, bilingual patient support caseworker)? Give summary @ -No Was smoking cessation discussed for >3mins.? @ -No Was critical care preformed (if so, how long)? @ -No Were there social determinants of health that impacted care today? How? (Homelessness, low income, unemployed, alcoholism, drug addiction, transportation, low edu. Level, literacy, decrease access to med. care, retirement, rehab)? @ -No Was there de-escalation of care discussed even if they declined (Discuss DNR or withdrawal of care, Hospice)? DNR status @ -No What co-morbidities impacted this encounter? (DM, HTN, Smoking, COPD, CAD, Cancer, CVA, ARF, Chemo, Hep., AIDS, mental health diagnosis, sleep apnea, morbid obesity)? @ -None Was patient admitted / discharged? Hospital course, mention meds given and route , prescriptions, significant lab abnormalities, going to OR and other pertinent info. @63-year-old male with brief syncopal episode. Patient admits to not eating or drinking much today and does admit to smoking marijuana prior to the episode. He had been standing for a prolonged period. Patient has no complaints at the time my evaluation. He is in sinus rhythm with stable vitals. Normal CBC, normal CMP, negative troponin. Patient is instructed to maintain oral hydration, eat regular meals and follow-up with his primary care provider. He should return to the emergency department with any new or worsening symptoms. Undiagnosed new problem with uncertain prognosis? @ -No Drug Therapy requiring intensive monitoring for toxicity (Heparin, Nitro, Insulin, Cardizem)? @ -No Were any procedures done? @ -No Diagnosis/symptom? @ -Syncope Acute, or Chronic, or Acute on Chronic? @Acute Uncomplicated (without systemic symptoms) or Complicated (systemic symptoms)? @ -Default Side effects of treatment? @ -No Exacerbation, Progression, or Severe Exacerbation? @ -No Poses a threat to life or bodily function? How? (Chest pain, USA, OR, pneumonia, PE, COPD, DKA, ARF, appy, cholecystitis, CVA, Diverticulitis, Homicidal, Suicidal, threat to staff... and all critical care pts) @ -Low risk at this time (Jose Moreno) - Lab Data Lab Results 12/17/23 12/17/23 12/17/23 Range/Units 21:45 21:49 21:49 WBC 6.5 (3.8-10.6) k/uL RBC 4.02 L (4.30-5.90) m/uL Hgb 13.2 (13.0-17.5) gm/dL Hct 39.1 (39.0-53.0) % MCV 97.3 (80.0-100.0) fL MCH 32.9 (25.0-35.0) pg MCHC 33.8 (31.0-37.0) g/dL RDW 12.6 (11.5-15.5) % Plt Count 227 (150-450) k/uL MPV 7.0 Neutrophils % 55 % Lymphocytes % 35 % Monocytes % 5 % Eosinophils % 2 % Basophils % 1 % Neutrophils # 3.6 (1.3-7.7) k/uL Lymphocytes # 2.3 (1.0-4.8) k/uL Monocytes # 0.3 (0-1.0) k/uL Eosinophils # 0.1 (0-0.7) k/uL Basophils # 0.0 (0-0.2) k/uL PT 11.1 (10.0-12.5) sec INR 1.0 (<1.2) APTT 23.1 (22.0-30.0) sec Sodium (137-145) mmol/L Potassium (3.5-5.1) mmol/L Chloride (98-107) mmol/L Carbon Dioxide (22-30) mmol/L Anion Gap mmol/L BUN (9-20) mg/dL Creatinine (0.66-1.25) mg/dL Est GFR (CKD-EPI)AfAm (>60 ml/min/1.73 sqM) Est GFR (CKD-EPI)NonAf (>60 ml/min/1.73 sqM) Glucose (74-99) mg/dL POC Glucose (mg/dL) 111 H (70-110) mg/dL POC Glu Synthetic Department Supervisor ID Najma Leroy Calcium (8.4-10.2) mg/dL Total Bilirubin (0.2-1.3) mg/dL AST (17-59) U/L ALT (4-49) U/L Alkaline Phosphatase (38-126) U/L Troponin I (0.000-0.034) ng/mL Total Protein (6.3-8.2) g/dL Albumin (3.5-5.0) g/dL 12/17/23 12/17/23 Range/Units 21:49 21:49 WBC (3.8-10.6) k/uL RBC (4.30-5.90) m/uL Hgb (13.0-17.5) gm/dL Hct (39.0-53.0) % MCV (80.0-100.0) fL MCH (25.0-35.0) pg MCHC (31.0-37.0) g/dL RDW (11.5-15.5) % Plt Count (150-450) k/uL MPV Neutrophils % % Lymphocytes % % Monocytes % % Eosinophils % % Basophils % % Neutrophils # (1.3-7.7) k/uL Lymphocytes # (1.0-4.8) k/uL Monocytes # (0-1.0) k/uL Eosinophils # (0-0.7) k/uL Basophils # (0-0.2) k/uL PT (10.0-12.5) sec INR (<1.2) APTT (22.0-30.0) sec Sodium 136 L (137-145) mmol/L Potassium 4.0 (3.5-5.1) mmol/L Chloride 104 (98-107) mmol/L Carbon Dioxide 26 (22-30) mmol/L Anion Gap 6 mmol/L BUN 8 L (9-20) mg/dL Creatinine 0.73 (0.66-1.25) mg/dL Est GFR (CKD-EPI)AfAm >90 (>60 ml/min/1.73 sqM) Est GFR (CKD-EPI)NonAf >90 (>60 ml/min/1.73 sqM) Glucose 107 H (74-99) mg/dL POC Glucose (mg/dL) (70-110) mg/dL POC Glu Synthetic Department Supervisor ID Calcium 9.1 (8.4-10.2) mg/dL Total Bilirubin 0.6 (0.2-1.3) mg/dL AST 38 (17-59) U/L ALT 18 (4-49) U/L Alkaline Phosphatase 41 (38-126) U/L Troponin I <0.012 (0.000-0.034) ng/mL Total Protein 6.6 (6.3-8.2) g/dL Albumin 4.0 (3.5-5.0) g/dL Disposition <Suzi Davidson - Last Filed: 12/17/23 21:50> Is patient prescribed a controlled substance at d/c from ED?: No Time of Disposition: 23:31 <Jose Moreno - Last Filed: 12/17/23 23:34> Clinical Impression: Syncope Disposition: HOME SELF-CARE Condition: Fair Instructions (If sedation given, give patient instructions): Dehydration (ED), Syncope (DC) Additional Instructions: Please drink plenty of fluids, eat regular meals. Return to the emergency department with worsening or changing symptoms. Referrals: Elizabeth Doll MD [Primary Care Provider] - 1-2 days
[2023-12-17 21:59] LABS: Basophils % (A) 1 %; Eosinophils # (A) 0.1 k/uL (0-0.7); Eosinophils % (A) 2 %; HCT 39.1 % (39.0-53.0); HGB 13.2 gm/dL (13.0-17.5); Lymphocytes # (A) 2.3 k/uL (1.0-4.8); Lymphocytes % (A) 35 %; MCH 32.9 pg (25.0-35.0); MCHC 33.8 g/dL (31.0-37.0); MCV 97.3 fL (80.0-100.0); Monocytes # (A) 0.3 k/uL (0-1.0); Monocytes % (A) 5 %; Neutrophils # (A) 3.6 k/uL (1.3-7.7); Neutrophils % (A) 55 %; Platelet Count 227 k/uL (150-450); RBC 4.02 m/uL (4.30-5.90); RDW 12.6 % (11.5-15.5); WBC 6.5 k/uL (3.8-10.6)
[2023-12-17 22:10] LABS: Partial Thromboplastin Time 23.1 sec (22.0-30.0); Prothrombin Time 11.1 sec (10.0-12.5)
[2023-12-17 22:12] LABS: ALT 18 U/L (4-49); AST 38 U/L (17-59); African American GFR (CKD) >90 (>60 ml/min/1.73 sqM); Alkaline Phosphatase 41 U/L (38-126); Anion Gap 6 mmol/L; Blood Urea Nitrogen 8 mg/dL (9-20); Calcium 9.1 mg/dL (8.4-10.2); Carbon Dioxide 26 mmol/L (22-30); Chloride 104 mmol/L (98-107); Glucose 107 mg/dL (74-99); Non-African American GFR(CKD) >90 (>60 ml/min/1.73 sqM); Sodium 136 mmol/L (137-145); Total Bilirubin 0.6 mg/dL (0.2-1.3); Total Protein 6.6 g/dL (6.3-8.2)
--- NOTE | 2023-12-17 22:12 | XR ---
EXAMINATION TYPE: XR chest 2V DATE OF EXAM: 12/17/2023 COMPARISON: Chest x-ray April 28, 2018 HISTORY: Syncope TECHNIQUE: Frontal and lateral views of the chest are obtained. FINDINGS: There is no focal air space opacity, pleural effusion, or pneumothorax seen. The cardiac silhouette size is stable and within normal limits. The osseous structures are intact. IMPRESSION: No acute cardiopulmonary process. No significant change from prior. [facility], , 12/17/2023 10:10 PM
[2023-12-17 23:38] VITALS: BP 101/66; PULSE 66
== END 2023-12-17 23:38 | disposition home or self-care (01) ==
LOC: EC 21:29
DX: R55 Syncope and collapse (principal)
CPT/HCPCS: 36415; 71046; 80053; 84484; 85025; 85610; 85730; 93005; 99284